=== PATIENT | female | born 1945 | race Caucasian/White ===

== ENCOUNTER → 2017-12-11 14:21 | Outpatient (POV) | payer MEDICARE, SELFPAY | PROVIDERS: Visit Provider Dermatology | DX: Z00.00 Encounter for general adult medical examination without abnormal findings (principal) ==

== ENCOUNTER → 2018-07-14 07:34 | Outpatient (CLI) | payer MEDICARE, SELFPAY ==
--- NOTE | 2018-07-14 08:00 | NM_ITS ---
History and Indications: Chest pain, shortness of breath, family history. Procedure: Patient exercised on Willard protocol 9 minutes, resting heart rate was 52 bpm resting blood pressure 165/87, with exercise maximum heart rate achieved was 1 44 bpm which is greater than 85% of the maximum predicted heart rate and a blood pressure was 176/80. Test was started due to shortness of breath patient denied any complained of chest pain. Patient has good exercise capacity achieved 10.1mets of workload on treadmill, the blood pressure response to exercise was abnormal. Electrocardiogram: Resting electrocardiogram showed sinus bradycardia, with exercise there is less than 1.[address] segment depression noted from the baseline EKG. The EKG portion of the exercise Myoview is negative for ischemia. Cardiac stress and resting SPECT images: Cardiac stress and resting SPECT images were obtained using technetium 99 Myoview 32.1 mCi stress and 10.1 mCi at rest. Gated SPECT further analysis of segmental wall motion and calculation of the ejection fraction also done. Cardiac stress and resting SPECT images show uniform myocardial activity without segmental perfusion abnormality, computer derived ejection fraction is over 65% with no regional wall motion abnormality, right ventricle is normal size and contractility. Conclusion: 1. The EKG portion of the exercise Myoview is negative for ischemia, patient has good exercise capacity achieved 10.1mets of workload on treadmill, the blood pressure response to exercise was abnormal, there was no exercise-induced chest discomfort. 2. No scintigraphic evidence of reversible ischemia seen at this level of exercise, computer derived ejection fraction is over 65% with no regional wall motion abnormality, right ventricle is normal size and contractility.
--- NOTE | 2018-07-14 08:56 | HMH.ITSHM ---
Current Home Medications as stated by this patient Katy De Los Santos or telephone services sales representative. []SYNTHROID
--- NOTE | 2018-07-14 10:30 | XR_ITS ---
XR DEXA axial skeleton HISTORY: ITS.REASON: OSTEOPENIA ORDERING PHYSICIAN: Jay Bailey MD PATIENT AGE: 72 years COMPARISON: 04/15/2016 FINDINGS: The BMD measured at the Left femoral neck is 0.670 g/cm squared with a T score of -2.6. This is considered Osteoporotic according to the World Health Organization criteria. Fracture risk is High. Treatment is advised. L1-L4 density has a T score of -2.1 and has decreased by 1.8%. The hip density has decreased by 0.8% IMPRESSION: Osteoporosis with high fracture risk. Treatment is advised. Suggest follow-up exam July 2019
== END ==
PROVIDERS: PCP Family Medicine; Visit Provider Family Medicine
DX: R07.89 Other chest pain (principal); M81.0 Age-related osteoporosis without current pathological fracture
CPT/HCPCS: 77080; 78451; 93017; A9502

== ENCOUNTER → 2020-01-25 08:05 | Outpatient (POV) | payer MEDICARE, SELFPAY | PROVIDERS: Visit Provider Dermatology | DX: Z00.00 Encounter for general adult medical examination without abnormal findings (principal) ==

== ENCOUNTER → 2020-08-21 09:01 | Outpatient (CLI) | payer MEDICARE, SELFPAY ==
--- NOTE | 2020-08-21 09:05 | XR_ITS ---
PROCEDURE: XR DEXA AXIAL SKELETON CLINICAL HISTORY: OSTEOPOROSIS COMPARISON: CR DEXAAX XR DEXA axial skeleton from 07/14/2018 FINDINGS: The right hip BMD is 0.590 with a T-score of -2.3. The left hip BMD is 0.568 with a T-score of -2.5. The lumbar spine BMD is 0.785 with a T-score of -2.4. Previously the lowest density was in the left femoral neck with a T-score -2.6 IMPRESSION: This patient is considered osteoporotic according to the World Health Organization criteria. Fracture risk is high. Treatment is advised. Based on these results a follow-up exam is recommended in 1 year. Dictated by: José Miguel Mcginnis MD 08/22/2020 08:56 José Miguel Mcginnis MD in [place] 08/22/2020 08:56
== END ==
PROVIDERS: PCP Nurse Practitioner; Visit Provider Nurse Practitioner
DX: M81.0 Age-related osteoporosis without current pathological fracture (principal)
CPT/HCPCS: 77080; 93225; 93226

== ENCOUNTER → 2021-07-10 12:40 | Outpatient (CLI) | payer MEDICARE, SELFPAY ==
--- NOTE | 2021-07-10 12:45 | CA_ITS ---
FINAL REPORT TECHNIQUE: Color Doppler, duplex Doppler and compression sonography of the left lower extremity deep venous systems was performed. CLINICAL HISTORY: .see tech sheet FINDINGS: There is no evidence of deep venous thrombosis from the level of the groin to the calf. The veins are patent and compressible. IMPRESSION: No evidence of deep venous thrombosis left lower extremity. Reviewed, Interpreted and Dictated by Eddie Sam III, MD Transcribed by Kisha Burns Authenticated by Eddie Sam III, MD on 07/10/2021 02:32:21 PM [facility]
== END ==
PROVIDERS: PCP Family Medicine; Visit Provider Nurse Practitioner
DX: M79.662 Pain in left lower leg (principal); R60.0 Localized edema
CPT/HCPCS: 93971

== ENCOUNTER → 2022-04-18 13:48 | Outpatient (CLI) | payer MEDICARE, SELFPAY ==
[2022-04-18 18:37] LABS: Basophils # 0.1 K/mm3 (0-0.2); Basophils % 1.1 % (0.1-2.0); Eosinophils # 0.2 K/mm3 (0.0-0.4); Eosinophils % 3.4 % (0.1-12.0); Hematocrit 42.2 % (37.0-47.0); Hemoglobin 13.7 g/dL (12.2-16.2); Lymphocytes # 1.2 K/mm3 (0.7-4.5); Mean Corpuscular HGB Conc 32.5 g/dL (31.8-35.4); Mean Corpuscular Hemoglobin 31.2 pg (27.0-31.2); Mean Corpuscular Volume 96.2 fl (81-99); Mean Platelet Volume 7.6 fl (7.4-10.4); Monocytes # 0.4 K/mm3 (0.1-1.0); Neutrophils % 69.5 % (37.0-80.0); Platelet Count 333 K/mm3 (142-424); Red Blood Count 4.38 M/mm3 (4.20-5.40); Red Cell Distribution Width 12.4 % (11.5-17.5); White Blood Count 5.8 K/mm3 (4.8-10.8)
[2022-04-18 19:21] LABS: Thyroid Stimulating Hormone 0.19 uIU/mL (0.465-4.68)
== END ==
PROVIDERS: PCP Nurse Practitioner; Visit Provider Nurse Practitioner
DX: R63.4 Abnormal weight loss (principal)
CPT/HCPCS: 84439; 84443; 85025

== ENCOUNTER → 2022-06-27 12:22 | Outpatient (CLI) | payer MEDICARE, SELFPAY ==
[2022-06-27 18:42] LABS: Basophils % 0.9 % (0.1-2.0); Eosinophils # 0.2 K/mm3 (0.0-0.4); Eosinophils % 4.2 % (0.1-12.0); Hematocrit 39.8 % (37.0-47.0); Hemoglobin 13.4 g/dL (12.2-16.2); Lymphocytes # 1.2 K/mm3 (0.7-4.5); Lymphocytes % 26.7 % (10-50); Mean Corpuscular HGB Conc 33.7 g/dL (31.8-35.4); Mean Corpuscular Hemoglobin 31.8 pg (27.0-31.2); Mean Corpuscular Volume 94.2 fl (81-99); Mean Platelet Volume 8.4 fl (7.4-10.4); Monocytes # 0.4 K/mm3 (0.1-1.0); Monocytes % 9.1 % (1.7-9.3); Neutrophils # 2.7 K/mm3 (1.8-7.8); Neutrophils % 59.1 % (37.0-80.0); Platelet Count 343 K/mm3 (142-424); Red Blood Count 4.23 M/mm3 (4.20-5.40); Red Cell Distribution Width 12.2 % (11.5-17.5); White Blood Count 4.5 K/mm3 (4.8-10.8)
[2022-06-27 18:50] LABS: Alanine Aminotransferase 17 U/L (12-78); Albumin Level 4.2 g/dl (3.5-5.0); Albumin/Globulin Ratio 1.6 (1.1-1.8); Alkaline Phosphatase 77 U/L (38-126); Aspartate Amino Transferase 30 U/L (14-36); Bilirubin,Total 0.4 mg/dl (0.2-1.3); Blood Urea Nitrogen 12 mg/dl (7-17); Carbon Dioxide 28 mmol/L (22.0-30.0); Chloride 99 mmol/L (98-107); Chol/HDL Ratio 2.5 (1-3.5); Cholesterol 216 mg/dl (140-200); Estimated Glomerular Filt Rate 98 ml/min (>60); GFR (African American) 118 ML/MIN (>60); Globulin 2.7 g/dL (1.3-3.2); Glucose 86 mg/dl (74-100); HDL Cholesterol 88 mg/dl (40-60); Sodium 135 mmol/L (136-145); Total Protein,Serum 6.9 g/dl (6.3-8.2); Triglycerides 77 mg/dl (30-150); VLDL Cholesterol 15 mg/dL (0-40)
[2022-06-27 19:01] LABS: Direct LDL Cholesterol 99.87 mg/dL (100-129)
[2022-06-27 19:20] LABS: Thyroid Stimulating Hormone 4.09 uIU/mL (0.465-4.68)
== END ==
PROVIDERS: PCP Nurse Practitioner; Visit Provider Nurse Practitioner
DX: E03.9 Hypothyroidism, unspecified (principal); E78.5 Hyperlipidemia, unspecified; K62.89 Other specified diseases of anus and rectum
CPT/HCPCS: 80053; 80061; 84439; 84443; 85025

== ENCOUNTER 2022-08-20 09:48 | Observation (INO) | payer MEDICARE, SELFPAY ==
[2022-08-20] VITALS (28 sets, daily range): BP systolic 103–152; BP diastolic 54–90; PULSE 65–100; RESP 15–18; TEMP 36.3–37.3; O2SAT 92–99; BMI 19.9; BMI 20.2
--- NOTE | 2022-08-20 09:53 | PC.NURSE ---
Friend at BS
--- NOTE | 2022-08-20 09:54 | PC.NURSE ---
pt ambulatory to ED room 7 from restroom without complication
--- NOTE | 2022-08-20 09:58 | PC.NURSE ---
MARK EMERSON at for patient eval
--- NOTE | 2022-08-20 10:11 | CT_ITS ---
FINAL REPORT CLINICAL HISTORY: RLQ abd pain and history of hernia. Guarding FINDINGS: CT OF THE ABDOMEN AND PELVIS WITH CONTRAST Axial CT images of the abdomen and pelvis were obtained after the administration of IV contrast. Coronal reformatted images were also obtained and reviewed.This study was performed with techniques to keep radiation doses as low as reasonably achievable (ALARA). Individualized dose reduction techniques using automated exposure control or adjustment of mA and/or kV according to the patient's size were employed. Abdomen: There is mild bibasilar atelectasis. The heart is normal in size. There are several hepatic cysts. The spleen is unremarkable. No adrenal mass is present. The pancreas has an unremarkable appearance. There is a left renal cyst measuring 5.5 cm. There is diffuse gastric wall thickening which is nonspecific and may be inflammatory. The aorta is normal in caliber. There is no free fluid or adenopathy. Pelvis: The appendix is enlarged measuring 12 mm in diameter and fluid-filled with surrounding inflammatory changes consistent with acute appendicitis. There is no evidence of bowel obstruction. There are scattered sigmoid diverticula. There are postoperative changes from hysterectomy. There is a probable small cyst measuring 13 mm in the right adnexa. The urinary bladder is unremarkable. No inflammatory process is seen. There is no evidence of mass or adenopathy. There is no evidence of bowel obstruction. IMPRESSION: Enlarged, fluid-filled appendix with surrounding inflammatory changes consistent with acute appendicitis. Diffuse gastric wall thickening which is nonspecific and may be inflammatory. Several hepatic cysts. Left renal cyst, 5.5 cm. Reviewed, Interpreted and Dictated by Eddie Sam III, MD Transcribed by Jessica Duron Authenticated and [facility]
--- NOTE | 2022-08-20 10:11 | HMH.EDGENADL ---
Discharge Plan Disposition Patient Disposition: Admitted As Inpatient Condition: Fair Chief Complaint: Abdominal Pain Clinical Impressions Clinical Impression: Acute appendicitis with localized peritonitis Discharge ED Provider: Bhupendra Lieberman General Adult HPI General Chief complaint: Abdominal Pain Stated complaint: RT abd pain, nausea Time Seen by Provider: 08/20/22 09:52 Mode of Arrival: Ambulatory Source of Information: Patient Limitations: No Limitations History of Present Illness HPI narrative: This is a 76-year-old female with history of hypothyroidism on Synthroid, bilateral inguinal hernias (status postrepair in the 90s) presenting with right lower quadrant abdominal pain. Patient states that abdominal pain started 2 nights prior to arrival, it started while she was bringing her knees to her chest while she was exercising. Since that time, it has waxed and waned, but is constant. At its worst, 8 out of 10 in intensity and does not radiate, it is sharp. Currently, it is 2 out of 10 and mild/dull. She states things that make it worse include changes in position, particularly standing up from lying down in bed. Denies nausea, vomiting, fevers, chills, dysuria, hematuria, swelling in her groin, abnormal vaginal discharge or bleeding, flank pain, or any other concerns. Last bowel movement was today and was normal for her, patient is still passing flatus. Related Data Home Medications Medication Instructions Recorded Confirmed calcium carbonate 250 mg-vitamin 1 tab PO BID Supplement 03/28/22 08/20/22 D3 3.125 mcg (125 unit) tablet magnesium oxide 500 mg tablet 500 mg PO DAILY Supplement 03/28/22 08/20/22 (Vaughn) multivit with min-folic 1 tab PO DAILY Supplement 03/28/22 08/20/22 acid-lutein 400 mcg-250 mcg chewable tablet (Centrum Silver) omega 5-tig-abf-fish oil 1,000 mg 1 cap PO DAILY Supplement 03/28/22 08/20/22 (120 mg-180 mg) capsule (Fish Oil) levothyroxine 75 mcg tablet 75 mcg PO .COMPLEX thyroid 06/27/22 08/20/22 (Synthroid) Previous Rx's Medication Instructions Recorded hydroxyzine pamoate 25 mg capsule 25 - 50 mg PO QID PRN anxiety #60 08/05/22 caps Allergies Allergy/AdvReac Type Severity Reaction Status Date / Time ciprofloxacin Allergy Verified 08/12/22 14:23 metronidazole Allergy Verified 08/12/22 14:23 Sulfa (Sulfonamide Allergy Verified 08/12/22 14:23 Antibiotics) [facility] Disclaimer: The information contained in this section may have been updated after the patient was seen, as this information can be updated by other users. Medical History Acquired hypothyroidism Advance directive on file Cataracts, bilateral Colon polyp Diverticulosis Fibrocystic breast disease Hyperlipidemia Hypothyroid Osteoporosis Postmenopausal Vitamin D deficiency Surgical History History of colonoscopy (~2017) History of hernia surgery History of tonsillectomy History of vaginal hysterectomy (~2008) Family History Other Cancer Hypertension Social History Smoking Status: Never smoker alcohol intake: never substance use type: denies use current occupational status: retired Travel in the last 8 weeks: None caffeine: Yes ROS Obtained: Yes All systems reviewed & no additional complaints except as documented Physical Exam General General appearance: alert and in no apparent distress Head Head exam: atraumatic, normocephalic and normal inspection Eye Eye exam: Present normal appearance, PERRL and EOMI ENT ENT exam: Present normal exam, normal oropharynx, mucous membranes moist, TM's normal bilaterally and normal external ear exam Neck Neck exam: Present normal inspection, full ROM and trachea midline; Absent
[2022-08-20 10:17] LABS: Microscopic, Urine URINE MICROSCOPIC (MICROSCOPIC)
[2022-08-20 10:19] LABS: Appearance,Urine CLEAR (Clear); Bilirubin,Urine Negative (Negative); Blood, Urine 2+ (Negative); Color,Urine YELLOW (Yellow); Glucose,Urine (UA) Negative (Negative); Ketones,Urine TRACE (Negative); Leukocyte Esterase,Urine Negative (Negative); Nitrate,Urine Negative (Negative); Protein,Urine Negative (Negative); Specific Gravity, Urine <= 1.005 (1.005-1.030); Urobilinogen,Urine 0.2 EU/dl (0.2)
[2022-08-20 10:25] LABS: Basophils % 0.3 % (0.1-2.0); Eosinophils # 0.1 K/mm3 (0.0-0.4); Eosinophils % 1.1 % (0.1-12.0); Hematocrit 39.4 % (37.0-47.0); Hemoglobin 13.2 g/dL (12.2-16.2); Lymphocytes # 0.7 K/mm3 (0.7-4.5); Lymphocytes % 5.4 % (10-50); Mean Corpuscular HGB Conc 33.5 g/dL (31.8-35.4); Mean Corpuscular Hemoglobin 31.1 pg (27.0-31.2); Mean Corpuscular Volume 92.7 fl (81-99); Mean Platelet Volume 7.3 fl (7.4-10.4); Monocytes # 0.9 K/mm3 (0.1-1.0); Monocytes % 6.6 % (1.7-9.3); Neutrophils # 11.5 K/mm3 (1.8-7.8); Neutrophils % 86.8 % (37.0-80.0); Platelet Count 329 K/mm3 (142-424); Red Blood Count 4.25 M/mm3 (4.20-5.40); Red Cell Distribution Width 12.3 % (11.5-17.5); White Blood Count 13.3 K/mm3 (4.8-10.8)
[2022-08-20 10:27] LABS: Chloride 93 mmol/L (98-107); Sodium 124 mmol/L (136-145)
[2022-08-20 10:28] LABS: Potassium 3.2 mmoL/L (3.5-5.1)
[2022-08-20 10:30] LABS: Alanine Aminotransferase 19 U/L (12-78); Alkaline Phosphatase 82 U/L (38-126); Anion Gap 8.2 mEq/L (5-15); Aspartate Amino Transferase 27 U/L (14-36); Bilirubin,Total 0.8 mg/dl (0.2-1.3); Blood Urea Nitrogen 8 mg/dl (7-17); Calcium 8.2 mg/dl (8.4-10.2); Carbon Dioxide 26 mmol/L (22.0-30.0); Creatinine Clearance Estimated 39 mL/min (50-200); Estimated Glomerular Filt Rate 121 ml/min (>60); GFR (African American) 146 ML/MIN (>60); Glucose 116 mg/dl (74-100); Lactic Acid 0.6 mmol/L (0.7-2.1); Lipase 52 U/L (23-300); MANUAL DIFFERENTIAL MANUAL DIFFERENTIAL (MANUAL DIFF)
[2022-08-20 10:31] LABS: Albumin Level 3.9 g/dl (3.5-5.0); Albumin/Globulin Ratio 1.5 (1.1-1.8); Globulin 2.6 g/dL (1.3-3.2); Total Protein,Serum 6.5 g/dl (6.3-8.2)
--- NOTE | 2022-08-20 10:32 | ECG_ITS ---
APPROVED REPORT Exam: Resting ECG HR:67 bpm ECG Measurements Heart Rate 67 AXES [place] 169 P 55 QRSd 77 QRS 66 QT 415 T 82 QTc 431 Conclusion SINUS RHYTHM NORMAL ECG UNCONFIRMED REPORT Electronically signed by : Samson Bell MD 08/20/2022 20:29:04
[2022-08-20 10:34] LABS: Bacteria,Urine Trace /lpf; Squamous Epithelial Cell,Urine Occasional #/hpf (0-5); WBC,Urine Occasional #/hpf (0-3)
--- NOTE | 2022-08-20 10:42 | PC.NURSE ---
pt to CT
[2022-08-20 10:43] LABS: Troponin I < 0.01 ng/ml (0.00-0.034)
[2022-08-20 10:48] LABS: Coronavirus 19, PCR Not Detected (NotDetected); Influenza A, PCR Not Detected (NotDetected); Influenza B, PCR Not Detected (NotDetected)
[2022-08-20 10:56] LABS: Lymphocytes % 8 % (10-50); Monocytes % 5 % (2-9); Neutrophils % 87 % (42-76); Platelet Estimate Normal; RBC Morphology Normal; Total Cells Counted 100
--- NOTE | 2022-08-20 11:27 | PC.NURSE ---
patient assisted to bathroom and back to bed. no other needs at this time
--- NOTE | 2022-08-20 11:36 | PC.NURSE ---
Family member came out stating iv sight hAD A KNOT, ASSESSED AND IT HAD AHUGE HEMATOMA. IV D/C.
--- NOTE | 2022-08-20 11:56 | PC.NURSE ---
Paged Dr. Polanco
--- NOTE | 2022-08-20 12:07 | PC.NURSE ---
patient assisted to bathroom, given warm blanket. Patient informed no more drinking until the came to speak to her
--- NOTE | 2022-08-20 12:08 | PC.NURSE ---
MARK EMERSON spoke wtih dr. burden, states to admit pt will take pt to surgery this afternoon, stated to contact pt pcp for admission
--- NOTE | 2022-08-20 12:11 | PC.NURSE ---
MARK EMERSON speaking with dr. webb
--- NOTE | 2022-08-20 12:13 | PC.NURSE ---
per dr. webb to ER MD pt has not been being seen at their office. ER MD contacted hospitalist-waiting mobile application engineer back
--- NOTE | 2022-08-20 12:19 | PC.NURSE ---
MARK EMERSON speaking with dr. lambert
--- NOTE | 2022-08-20 12:22 | PC.NURSE ---
notified care management of admission
--- NOTE | 2022-08-20 12:26 | PC.NURSE ---
MARK EMERSON at BS for update on POC; friend at BS
--- NOTE | 2022-08-20 12:26 | PC.NURSE ---
MARK EMERSON at discussing POC
--- NOTE | 2022-08-20 12:36 | PC.NURSE ---
New IV line placed right forearm 18 ga, IVF connected and infusion, site WDL
--- NOTE | 2022-08-20 12:39 | PC.NURSE ---
surgery team called advising they were coming to get pt in 20-30 min
--- NOTE | 2022-08-20 12:43 | PC.NURSE ---
Dr. Polanco at BS
--- NOTE | 2022-08-20 12:56 | EXP.HP ---
History of Present Illness *Admission Date: 08/20/22 *Reason for visit:: Abdominal pain *History of present illness: Ms. De Los Santos is a pleasant 76-year-old female who presented to the ER today with 2 to 3 days of worsening abdominal pain. States pain began over the weekend, responded to ibuprofen with resolution of pain. Until this morning when she woke up that she have acute onset of sharp right lower abdominal pain. Denies any nausea or vomiting. No diarrhea. No fever. She was concerned for appendicitis or rupture of her previous hernia repair. History of's, diverticula cyst, hypothyroidism. Otherwise in generally good health for her age. No other acute complaints today. On presentation to the ER, CT obtained showing appendicitis. Surgery consulted, patient taken to the OR for surgery. Started on empiric antibiotics with Invanz. Medicine consulted for admission. After arriving to the floor, patient is postop. Having some abdominal tenderness from incisions. Denies any nausea. Tolerating clear liquids. Afebrile and hemodynamically stable. On room air. [facility] Disclaimer: The information contained in this section may have been updated after the patient was seen, as this information can be updated by other users. Medical History Acquired hypothyroidism Advance directive on file Cataracts, bilateral Colon polyp Diverticulosis Fibrocystic breast disease Hyperlipidemia Hypothyroid Osteoporosis Postmenopausal Vitamin D deficiency Surgical History History of hernia surgery History of tonsillectomy History of vaginal hysterectomy (~2008) S/P laparoscopic appendectomy Family History Cancer Hypertension Social History Smoking Status: Never smoker alcohol intake: never substance use type: denies use current occupational status: retired Travel in the last 8 weeks: None caffeine: Yes Review of Systems Review of Systems Review of systems (narrative): 14 point review of systems performed, pertinent positives and negatives as per HPI Meds Home Medications and Allergies Home Medications Medication Instructions Recorded Confirmed Type calcium carbonate 250 mg-vitamin 1 tab PO BID Supplement 03/28/22 08/20/22 History D3 3.125 mcg (125 unit) tablet magnesium oxide 500 mg tablet 500 mg PO DAILY Supplement 03/28/22 08/20/22 History (Vaughn) multivit with min-folic 1 tab PO DAILY Supplement 03/28/22 08/20/22 History acid-lutein 400 mcg-250 mcg chewable tablet (Centrum Silver) omega 7-sjs-byv-fish oil 1,000 mg 1 cap PO DAILY Supplement 03/28/22 08/20/22 History (120 mg-180 mg) capsule (Fish Oil) levothyroxine 75 mcg tablet 75 mcg PO MOTUWETHFR hypothyroidism 06/27/22 08/20/22 History (Synthroid) hydroxyzine pamoate 25 mg capsule 25 - 50 mg PO QIDP PRN anxiety 08/20/22 08/20/22 History New Prescriptions to Start Prescriptions: Allergies Allergy/AdvReac Type Severity Reaction Status Date / Time ciprofloxacin Allergy Verified 08/20/22 12:41 metronidazole Allergy Verified 08/20/22 12:41 Sulfa (Sulfonamide Allergy Verified 08/20/22 12:41 Antibiotics) Exam Data for Last 24 hours Vital signs and Labs for Last 24 Hours: Temp Pulse Resp BP Pulse Ox 99.1 F 73 16 126/69 99 08/20/22 10:08/20/22 12:00 08/20/22 10:08/20/22 12:00 08/20/22 12:00 Laboratory Results - last 24 hr 08/20/22 09:54: Urine Color Yellow, Urine Appearance Clear, Urine pH 6.0, Ur Specific [place] <= 1.005, Urine Protein Negative, Urine Glucose (UA) Negative, Urine Ketones Trace, Urine Blood 2+, Urine Nitrate Negative, Urine Bilirubin Negative, Urine Urobilinogen 0.2, Ur Leukocyte Esterase Negative, Urine RBC 10-20, Urine WBC Occasional, Ur Squamous Epith Cells Occasional, U
--- NOTE | 2022-08-20 13:01 | PC.NURSE ---
surgery staff at
--- NOTE | 2022-08-20 13:04 | PC.NURSE ---
pt to preop via wheelchair per jf wilks at this time
--- NOTE | 2022-08-20 13:18 | EXP.ANES.CKL ---
[facility] Disclaimer: The information contained in this section may have been updated after the patient was seen, as this information can be updated by other users. Medical History Acquired hypothyroidism Advance directive on file Cataracts, bilateral Colon polyp Diverticulosis Fibrocystic breast disease Hyperlipidemia Hypothyroid Osteoporosis Postmenopausal Vitamin D deficiency Surgical History History of colonoscopy (~2017) History of hernia surgery History of tonsillectomy History of vaginal hysterectomy (~2008) Family History Other Cancer Hypertension Social History Smoking Status: Never smoker alcohol intake: never substance use type: denies use current occupational status: retired Travel in the last 8 weeks: None caffeine: Yes [facility] Anesthesia Checklist Patient Identification Patient Identification: Arm Band Structural Data Admitted From: Emergency Dept Planned Operative Procedure/s: Laparoscopic Appendectomy Consent for Planned Operative Procedure(s) Verified: Yes Verified Documents: Surgical Consent and History and Physical NPO Status Verified Time NPO: 06:30 (Light breakfast- toast, crackers and tea) Additional verifications Anesthesia Reactions: No Airway Assessment C-Spine Mobility Assessed: Yes TMJ Mobility Assessed: Yes Dentition: Good Dentition Neurological Assessment Level of Consciousness: Awake and Alert Anesthesia Plan Anesthesia Risk discussed: Yes Anesthesia Plan: Verified ASA Class: II Anesthesia Type: General
--- NOTE | 2022-08-20 13:52 | EXP.SURG.CON ---
History of Present Illness *Admission Date: 08/20/22 *Reason for visit:: Appendicitis; hyponatremia *History of present illness: This is a 76-year-old female seen in consultation after presenting to the emergency department with increasing right lower quadrant abdominal pain. Radiographic evidence confirming appendicitis was noted. Mild leukocytosis with left shift also noted. In addition, laboratory evaluation revealed fairly significant hyponatremia and the decision was made to admit to the hospital service with surgical consultation. [facility] Disclaimer: The information contained in this section may have been updated after the patient was seen, as this information can be updated by other users. Medical History (Updated 08/20/22 @ 13:56 by Jose Polanco MD) Acquired hypothyroidism Advance directive on file Cataracts, bilateral Colon polyp Diverticulosis Fibrocystic breast disease Hyperlipidemia Hypothyroid Osteoporosis Postmenopausal Vitamin D deficiency Surgical History (Updated 08/20/22 @ 13:56 by Jose Polanco MD) History of hernia surgery History of tonsillectomy History of vaginal hysterectomy (~2008) Family History Other Cancer Hypertension Social History Smoking Status: Never smoker alcohol intake: never substance use type: denies use current occupational status: retired Travel in the last 8 weeks: None caffeine: Yes Meds Home Medications and Allergies Home Medications Medication Instructions Recorded Confirmed Type calcium carbonate 250 mg-vitamin 1 tab PO BID Supplement 03/28/22 08/20/22 History D3 3.125 mcg (125 unit) tablet magnesium oxide 500 mg tablet 500 mg PO DAILY Supplement 03/28/22 08/20/22 History (Vaughn) multivit with min-folic 1 tab PO DAILY Supplement 03/28/22 08/20/22 History acid-lutein 400 mcg-250 mcg chewable tablet (Centrum Silver) omega 3-uuz-eno-fish oil 1,000 mg 1 cap PO DAILY Supplement 03/28/22 08/20/22 History (120 mg-180 mg) capsule (Fish Oil) levothyroxine 75 mcg tablet 75 mcg PO MOTUWETHFR hypothyroidism 06/27/22 08/20/22 History (Synthroid) hydroxyzine pamoate 25 mg capsule 25 - 50 mg PO QIDP PRN anxiety 08/20/22 08/20/22 History New Prescriptions to Start Prescriptions: Allergies Allergy/AdvReac Type Severity Reaction Status Date / Time ciprofloxacin Allergy Verified 08/20/22 12:41 metronidazole Allergy Verified 08/20/22 12:41 Sulfa (Sulfonamide Allergy Verified 08/20/22 12:41 Antibiotics) Exam (Inpt) Vital signs and Labs for Last 24 Hours: Temp Pulse Resp BP Pulse Ox 99.1 F 71 16 143/90 H 98 08/20/22 13:04 08/20/22 13:04 08/20/22 13:04 08/20/22 13:04 08/20/22 12:30 Laboratory Results - last 24 hr 08/20/22 09:54: Urine Color Yellow, Urine Appearance Clear, Urine pH 6.0, Ur Specific [place] <= 1.005, Urine Protein Negative, Urine Glucose (UA) Negative, Urine Ketones Trace, Urine Blood 2+, Urine Nitrate Negative, Urine Bilirubin Negative, Urine Urobilinogen 0.2, Ur Leukocyte Esterase Negative, Urine RBC 10-20, Urine WBC Occasional, Ur Squamous Epith Cells Occasional, Urine Bacteria Trace 08/20/22 10:15: WBC 13.3 H, RBC 4.25, Hgb 13.2, Hct 39.4, MCV 92.7, MCH 31.1, MCHC 33.5, RDW 12.3, Plt Count 329, MPV 7.3 L, Neut % (Auto) 86.8 H, Lymph % (Auto) 5.4 L, [place] % (Auto) 6.6, Eos % (Auto) 1.1, Baso % (Auto) 0.3, Neut # (Auto) 11.5 H, Lymph # (Auto) 0.7, [place] # (Auto) 0.9, Eos # (Auto) 0.1, Baso # (Auto) 0.0, Total Counted 100, Neutrophils % (Manual) 87 H, Lymphocytes % (Manual) 8 L, Monocytes % (Manual) 5, Platelet Estimate Normal, RBC Morphology Normal 08/20/22 10:15: Sodium 124 L, Potassium 3.2 L, Chloride 93 L, Carbon Dioxide 26, Anion Gap 8.2, BUN 8, Creatinine 0.50 L, Estimated Creat Clear 39, Estimated GFR 121, Est GFR ( Amer) 146, Glucose 116 H, Calcium 8.2 L,
--- NOTE | 2022-08-20 15:25 | EXP.OP.NOTE ---
Date of procedure: 08/20/22 Pre-op Diagnosis:: Appendicitis Post-op Diagnosis:: Necrotizing appendicitis with focal perforation Procedure performed:: Laparoscopic appendectomy Surgeon:: Jose Polanco MD PENS AND PENCILS REPAIRER:: Cricket Weller Anesthesia: VINCENT Estimated blood loss (mL): 15 Operative findings:: Necrotic appendix with severe periappendiceal inflammatory changes Small bowel, colon, and omentum densely adhesed to necrotic appendix Focal perforation centrally No obvious abscess or fluid collections Appendiceal base appeared viable Operative note:: After informed consent was obtained the patient was taken to the operating room and placed in the supine position. General anesthesia was induced and her abdomen was prepped and draped in a sterile fashion. After infiltration local anesthetic a supraumbilical incision was made. A Veress needle was placed in position. The abdomen was insufflated. A 12 mm optical trocar was placed in position. Under direct visualization an additional 5 mm trocar was placed in the suprapubic position and an additional 5 mm trocar was placed in the left lower quadrant. Dense adhesions noted throughout the right lower quadrant with significant increased inflammatory changes and adhesions within the distal ileum, cecum, and surrounding omentum. The appendix was located along the retrocecal/right lateral margin. The appendix was necrotic and a small area of focal perforation along the mid appendix was seen. No sign of surrounding abscess cavity or fluid collection. Secondary to dense adhesions to the small bowel and colonic wall elevation and dissection was very difficult. The mesoappendix was taken at the appendiceal margin with harmonic dusty. No obvious injury to small bowel or colon was noted. The base of the appendix appeared viable and was controlled with an Endopath 45 stapling device. The appendix which was now freed from surrounding tissue was placed in a retrieval bag and removed through the supraumbilical trocar site. The right lower quadrant was thoroughly irrigated. No active bleeding or sign of injury was noted. Fascia at the supraumbilical trocar site was reapproximated utilizing the needle close device. Skin was closed with 4-0 Monocryl in a mattress fashion to facilitate hemostasis. Condition: stable Disposition: PACU Specimens:: Appendix Complications:: No immediate. Note: The patient did have moderate elevation of CO2 noted during the terminal portion of the case. This coincided temporally with the release of pneumoperitoneum (afterwards which CO2 levels improved).
--- NOTE | 2022-08-20 15:37 | EXP.ANES.I ---
[facility] Anesthesia Record Part I Anesthesia Record I Intake, IV Amount: 1,200 Estimated blood loss (mL): 10 Urine output (mL): 75 Blood Products used (#): none Blood Pressure: 131/73 SaO2: 96 Pulse Rate: 100 Respiratory Rate: 16 Temperature: 97.4 F Patient is:: Drowsy and Stable
[2022-08-20 15:49] LABS: Microscopic,Cath URINE MICROSCOPIC (MICROSCOPIC)
[2022-08-20 15:54] LABS: Appearance,Urine/Cath CLEAR (Clear); Bilirubin,Cath Negative (Negative); Blood, Urine/Cath 2+ (Negative); Color,Urine/Cath YELLOW (Yellow); Glucose,Urine/Cath (UA) Negative (Negative); Ketones,Urine/Cath 1+ (Negative); Leukocyte Esterase,Cath Negative (Negative); Nitrate,Cath Negative (Negative); PH,Urine/Cath 6.5 (5.0-8.5); Protein,Urine/Cath Negative (Negative); Specific Gravity, Urine/Cath <= 1.005 (1.005-1.030); Urobilinogen,Cath 0.2 EU/dl (0.2)
--- NOTE | 2022-08-20 15:58 | PC.NURSE ---
Report from EMELI Hewitt. Patient arriving from PACU.
--- NOTE | 2022-08-20 16:00 | PC.NURSE ---
Pt arrived to the floor at this time
--- NOTE | 2022-08-20 16:00 | SUR.PHASEI ---
Report called to EMELI Marquez @ [phone]. [phone] -Pt transported to floor via stretcher by Elisa Black RN and Janae Davis RN.
[2022-08-20 16:02] LABS: RBC,Urine/Cath Occasional # /hpf (0-3)
--- NOTE | 2022-08-20 16:13 | HMH.PHAINT1 ---
Pharmacy Intervention Comments: Medication reconciliation completed using external fill history and patient interview. During patient interview, patient expressed she does not take her prescribed zoloft due to side effects . When asked about specific side effects, patient just stated I don't like medicine
--- NOTE | 2022-08-20 19:01 | PC.NURSE ---
patient rested well this afternoon since arriving to the floor. pain meds given, walked to the bathroom with minimal assistance.
[2022-08-21] VITALS (8 sets, daily range): BP systolic 92–132; BP diastolic 59–76; PULSE 66–90; RESP 16–18; TEMP 36.6–36.9; O2SAT 93–98; BMI 21.1
--- NOTE | 2022-08-21 05:18 | PC.NURSE ---
pt rested well through the night, pt states tenderness to incision sites but denies need for pain meds when asked, vss, pt is alert and oriented x4, no acute distress, no issues noted. abdominal incisions x3 with dressings intact with scant amt of drainage noted.
--- NOTE | 2022-08-21 06:04 | PC.NURSE ---
.075mcg of levothyroxine unavailable, verified with jessica with [facility] the ok to give 3 tablets of 0.025mcg to equal .075mcg repeated and verified, pt did not want pain med at this time when offered for complaints of tenderness and pain at incision sites.
[2022-08-21 06:20] LABS: Basophils % 0.2 % (0.1-2.0); Eosinophils % 0.1 % (0.1-12.0); Hematocrit 38.7 % (37.0-47.0); Hemoglobin 12.3 g/dL (12.2-16.2); Lymphocytes # 0.9 K/mm3 (0.7-4.5); Mean Corpuscular HGB Conc 31.7 g/dL (31.8-35.4); Mean Corpuscular Hemoglobin 30.5 pg (27.0-31.2); Mean Corpuscular Volume 96.1 fl (81-99); Mean Platelet Volume 7.2 fl (7.4-10.4); Monocytes # 0.6 K/mm3 (0.1-1.0); Monocytes % 6.5 % (1.7-9.3); Neutrophils # 7.6 K/mm3 (1.8-7.8); Neutrophils % 83.1 % (37.0-80.0); Platelet Count 296 K/mm3 (142-424); Red Blood Count 4.02 M/mm3 (4.20-5.40); Red Cell Distribution Width 12.4 % (11.5-17.5); White Blood Count 9.1 K/mm3 (4.8-10.8)
[2022-08-21 06:39] LABS: Anion Gap 5.1 mEq/L (5-15); Blood Urea Nitrogen 6 mg/dl (7-17); Calcium 8.1 mg/dl (8.4-10.2); Carbon Dioxide 30 mmol/L (22.0-30.0); Chloride 99 mmol/L (98-107); Creatinine Clearance Estimated 42 mL/min (50-200); Estimated Glomerular Filt Rate 121 ml/min (>60); GFR (African American) 146 ML/MIN (>60); Glucose 90 mg/dl (74-100); Magnesium 2.2 mg/dl (1.6-2.3); Potassium 4.1 mmoL/L (3.5-5.1); Sodium 130 mmol/L (136-145)
[2022-08-21 07:06] LABS: Thyroid Stimulating Hormone 5.31 uIU/mL (0.465-4.68)
--- NOTE | 2022-08-21 08:01 | DIET.NUTRFU ---
RD was notified of diet advancement to full liquids and patient was requesting a special milkshake she has been drinking at home. She lost her about 1 week ago and has lost 7#. She has been making homemade milk containing protein powder, peanutbutter and banana for extra calories and protein. Also provided her with handouts on increasing calorie intake, milkshake and custard recipes. Notified kitchen of lunch and milkshake requests
--- NOTE | 2022-08-21 08:18 | EXP.SURG.PN ---
Subjective Patient reports: no new complaints and feels better Exam Data for Last 24 hours Vital signs and Labs for Last 24 Hours: Temp Pulse Resp BP Pulse Ox 98.3 F 76 16 122/74 97 08/21/22 08:00 08/21/22 08:00 08/21/22 08:00 08/21/22 08:00 08/21/22 08:00 Laboratory Results - last 24 hr 08/20/22 09:54: Urine Color Yellow, Urine Appearance Clear, Urine pH 6.0, Ur Specific [place] <= 1.005, Urine Protein Negative, Urine Glucose (UA) Negative, Urine Ketones Trace, Urine Blood 2+, Urine Nitrate Negative, Urine Bilirubin Negative, Urine Urobilinogen 0.2, Ur Leukocyte Esterase Negative, Urine RBC 10-20, Urine WBC Occasional, Ur Squamous Epith Cells Occasional, Urine Bacteria Trace 08/20/22 10:15: WBC 13.3 H, RBC 4.25, Hgb 13.2, Hct 39.4, MCV 92.7, MCH 31.1, MCHC 33.5, RDW 12.3, Plt Count 329, MPV 7.3 L, Neut % (Auto) 86.8 H, Lymph % (Auto) 5.4 L, [place] % (Auto) 6.6, Eos % (Auto) 1.1, Baso % (Auto) 0.3, Neut # (Auto) 11.5 H, Lymph # (Auto) 0.7, [place] # (Auto) 0.9, Eos # (Auto) 0.1, Baso # (Auto) 0.0, Total Counted 100, Neutrophils % (Manual) 87 H, Lymphocytes % (Manual) 8 L, Monocytes % (Manual) 5, Platelet Estimate Normal, RBC Morphology Normal 08/20/22 10:15: Sodium 124 L, Potassium 3.2 L, Chloride 93 L, Carbon Dioxide 26, Anion Gap 8.2, BUN 8, Creatinine 0.50 L, Estimated Creat Clear 39, Estimated GFR 121, Est GFR ( Amer) 146, Glucose 116 H, Calcium 8.2 L, Total Bilirubin 0.8, AST 27, ALT 19, Alkaline Phosphatase 82, Troponin I < 0.01, Total Protein 6.5, Albumin 3.9, Globulin 2.6, Albumin/Globulin Ratio 1.5, Lipase 52 08/20/22 10:15: Lactate 0.6 L 08/20/22 10:37: SARS-CoV-2 (PCR) Not detected, Influenza A Untype (PCR) Not detected, Influenza Type B (PCR) Not detected 08/20/22 14:00: Urine Color Yellow, Urine Appearance Clear, Urine pH 6.5, Ur Specific [place] <= 1.005, Urine Protein Negative, Urine Glucose (UA) Negative, Urine Ketones 1+, Urine Blood 2+, Urine Nitrate Negative, Urine Bilirubin Negative, Urine Urobilinogen 0.2, Ur Leukocyte Esterase Negative, Urine RBC Occasional, Urine WBC None, Ur Squamous Epith Cells None, Urine Bacteria None 08/21/22 05:20: WBC 9.1 D, RBC 4.02 L, Hgb 12.3, Hct 38.7, MCV 96.1, MCH 30.5, MCHC 31.7 L, RDW 12.4, Plt Count 296, MPV 7.2 L, Neut % (Auto) 83.1 H, Lymph % (Auto) 10.0, [place] % (Auto) 6.5, Eos % (Auto) 0.1, Baso % (Auto) 0.2, Neut # (Auto) 7.6, Lymph # (Auto) 0.9, [place] # (Auto) 0.6, Eos # (Auto) 0.0, Baso # (Auto) 0.0 08/21/22 05:20: Sodium 130 L, Potassium 4.1 D, Chloride 99, Carbon Dioxide 30, Anion Gap 5.1, BUN 6 L, Creatinine 0.50 L, Estimated Creat Clear 42, Estimated GFR 121, Est GFR ( Amer) 146, Glucose 90 D, Calcium 8.1 L, Magnesium 2.2, TSH 5.31 H I & O for Last 24 hours: Intake & Output 08/18/22 08/19/22 08/20/22 08/21/22 11:59 11:59 11:59 11:59 Intake Total 2680 / 2680 Output Total 275 / 275 Balance 2405 / 2405 Weight 109 lb 119 lb 3.2 oz Constitutional Constitutional: no acute distress *Routine Respiratory Exam Respiratory: Absent respiratory distress *Routine Cardiovascular Exam Cardiovascular: Absent tachycardia *Routine Abdominal Exam Abdominal: Present soft Comments: Dressings intact. No cellulitis. Appropriate postoperative tenderness. Progress Note: A&P Assessment and plan (1) Acute perforated appendicitis: Problem details: Appendiceal necrosis with focal perforation Status: Acute Assessment and plan: Continue IV antibiotics for now Full liquid diet Increase ambulation Repeat CBC in AM Possible discharge home tomorrow with close outpatient follow-up (2) Hyponatremia: Status: Acute
--- NOTE | 2022-08-21 08:40 | P.PNANES_ITS ---
[facility] Anesthesia Record Part II Anesthesia Record Part II Discharge Time: 15:55 Destination: Surgical Day Care (OP Surgery) PACU nurse assessment reviewed?: Yes Patient Condition:: Good Anesthesia Complications:: None Swallowing reflex intact?: Yes Cyanosis?: No Blood Pressure: 132/72 Pulse Rate: 80 Temperature: 98 F Mental Status: Alert & Oriented Pain level:: 0 Nausea and/or vomitting:: None Intake, IV Amount: 0
--- NOTE | 2022-08-21 10:35 | PC.NURSE ---
Patient up and ambulating in the hallway.
--- NOTE | 2022-08-21 11:35 | EXP.PN ---
Subjective *Date: 08/21/22 *Time: 11:35 Interval history: Date of service August 21, 2022 The patient reports improved abdominal pain. She reports adequate pain control. She is requesting something to eat. Nursing staff report that she remains afebrile with stable heart rates and some low blood pressures this morning. She is saturating appropriately on room air. Her morning labs have been reviewed, discussed and personally interpreted as follows: CBC with a normal white blood cell count 9.1, stable hemoglobin 12.3 and normal platelets. Her electrolytes identify sodium 130, potassium 4.1, chloride 99, BUN 6 and normal creatinine 0.5. CT of the abdomen pelvis identified appendicitis with gastric thickening and she has been placed on PPI therapy. Exam Data for Last 24 hours Vital signs and Labs for Last 24 Hours: Temp Pulse Resp BP Pulse Ox 98 F 80 16 132/72 97 08/21/22 08:41 08/21/22 08:41 08/21/22 08:00 08/21/22 08:41 08/21/22 08:00 Laboratory Results - last 24 hr 08/20/22 10:37: SARS-CoV-2 (PCR) Not detected, Influenza A Untype (PCR) Not detected, Influenza Type B (PCR) Not detected 08/20/22 14:00: Urine Color Yellow, Urine Appearance Clear, Urine pH 6.5, Ur Specific [place] <= 1.005, Urine Protein Negative, Urine Glucose (UA) Negative, Urine Ketones 1+, Urine Blood 2+, Urine Nitrate Negative, Urine Bilirubin Negative, Urine Urobilinogen 0.2, Ur Leukocyte Esterase Negative, Urine RBC Occasional, Urine WBC None, Ur Squamous Epith Cells None, Urine Bacteria None 08/21/22 05:20: WBC 9.1 D, RBC 4.02 L, Hgb 12.3, Hct 38.7, MCV 96.1, MCH 30.5, MCHC 31.7 L, RDW 12.4, Plt Count 296, MPV 7.2 L, Neut % (Auto) 83.1 H, Lymph % (Auto) 10.0, [place] % (Auto) 6.5, Eos % (Auto) 0.1, Baso % (Auto) 0.2, Neut # (Auto) 7.6, Lymph # (Auto) 0.9, [place] # (Auto) 0.6, Eos # (Auto) 0.0, Baso # (Auto) 0.0 08/21/22 05:20: Sodium 130 L, Potassium 4.1 D, Chloride 99, Carbon Dioxide 30, Anion Gap 5.1, BUN 6 L, Creatinine 0.50 L, Estimated Creat Clear 42, Estimated GFR 121, Est GFR ( Amer) 146, Glucose 90 D, Calcium 8.1 L, Magnesium 2.2, TSH 5.31 H I & O for Last 24 hours: Intake & Output 08/18/22 08/19/22 08/20/22 08/21/22 23:59 23:59 23:59 23:59 Intake Total 1680 / 1680 1000 / 1000 Output Total 75 / 75 250 / 250 Balance 1605 / 1605 750 / 750 Weight 51.766 kg 54.068 kg Constitutional Constitutional: no acute distress and cooperative *Routine HEENT Exam Head: Present normocephalic Eye: Present EOMI and PERRL ENT: Present mucous membranes moist *Routine Neck Exam Neck: Present supple; Absent lymphadenopathy *Routine Respiratory Exam Respiratory: Present CTA bilaterally *Routine Cardiovascular Exam Cardiovascular: Present RRR *Routine Abdominal Exam Abdominal: Present soft and normoactive bowel sounds Comments: Postoperative tenderness *Routine Extremities Exam Extremities: Absent cyanosis, clubbing or edema *Routine Skin Exam Skin: Present warm; Absent rash *Routine Neurological Exam Neurological: Present alert, oriented X3, moving all extremities, vision grossly intact, hearing grossly intact and normal speech Routine Psychiatric Exam Psychiatric: Present normal affect, normal thought process, cooperative, good insight and good judgment Assessment and Plan *Assessment and plan (1) Acute appendicitis with localized peritonitis: Status: Deleted Qualifiers: Appendicitis abscess presence: without abscess Appendicitis gangrene presence: without gangrene Appendicitis perforation presence: without perforation Qualified Code(s): K35.30 - Acute appendicitis with localized peritonitis, without perforation or gangrene Category: Medical Code(s): K35.30 - Acute appendicitis with localized peritonitis, without perforation or gangrene (2) Hyponatremia: Status: Acute Category: Medical Code(s): E87.1 - Hypo-osmolality and hyponatremia (3) Osteoporosis: Status: Acute
[2022-08-21 14:25] LABS: Sodium, Urine 22 mmol/L (Not Estab.)
[2022-08-22] VITALS: BP 128/71; PULSE 72; RESP 18; TEMP 36.7; O2SAT 94
[2022-08-22 04:00] VITALS: BP 120/70; PULSE 64; RESP 18; TEMP 36.8; O2SAT 96; BMI 19.5
--- NOTE | 2022-08-22 04:00 | PC.NURSE ---
no change from previous assessment, pt denied need for pain meds through the night, ambulating well, no acute distress vital signs stable, +flatus post op, -bm post op, no other issues or concerns
[2022-08-22 06:21] LABS: Anion Gap 7.4 mEq/L (5-15); Blood Urea Nitrogen 7 mg/dl (7-17); Carbon Dioxide 29 mmol/L (22.0-30.0); Chloride 100 mmol/L (98-107); Creatinine Clearance Estimated 39 mL/min (50-200); Estimated Glomerular Filt Rate 98 ml/min (>60); GFR (African American) 118 ML/MIN (>60); Glucose 90 mg/dl (74-100); Potassium 4.4 mmoL/L (3.5-5.1); Sodium 132 mmol/L (136-145)
[2022-08-22 06:37] LABS: Basophils # 0.1 K/mm3 (0-0.2); Basophils % 1.3 % (0.1-2.0); Eosinophils # 0.2 K/mm3 (0.0-0.4); Eosinophils % 3.7 % (0.1-12.0); Hematocrit 42.4 % (37.0-47.0); Hemoglobin 13.1 g/dL (12.2-16.2); Mean Corpuscular HGB Conc 30.8 g/dL (31.8-35.4); Mean Corpuscular Hemoglobin 29.5 pg (27.0-31.2); Mean Platelet Volume 7.3 fl (7.4-10.4); Monocytes # 0.4 K/mm3 (0.1-1.0); Monocytes % 8.2 % (1.7-9.3); Neutrophils % 64.8 % (37.0-80.0); Platelet Count 344 K/mm3 (142-424); Red Blood Count 4.42 M/mm3 (4.20-5.40); Red Cell Distribution Width 12.2 % (11.5-17.5); White Blood Count 4.6 K/mm3 (4.8-10.8)
--- NOTE | 2022-08-22 07:16 | P.PN_ITS ---
Subjective Patient reports: no new complaints Exam Data for Last 24 hours Vital signs and Labs for Last 24 Hours: Temp Pulse Resp BP Pulse Ox 98.3 F 64 18 120/70 96 08/22/22 04:00 08/22/22 04:00 08/22/22 04:00 08/22/22 04:00 08/22/22 04:00 Laboratory Results - last 24 hr 08/20/22 09:54: Urine Sodium 22 08/22/22 05:58: WBC 4.6 L D, RBC 4.42, Hgb 13.1, Hct 42.4, MCV 96.0, MCH 29.5, MCHC 30.8 L, RDW 12.2, Plt Count 344, MPV 7.3 L, Neut % (Auto) 64.8, Lymph % (Auto) 22.0, [place] % (Auto) 8.2, Eos % (Auto) 3.7, Baso % (Auto) 1.3, Neut # (Auto) 3.0, Lymph # (Auto) 1.0, [place] # (Auto) 0.4, Eos # (Auto) 0.2, Baso # (Auto) 0.1 08/22/22 05:58: Sodium 132 L, Potassium 4.4, Chloride 100, Carbon Dioxide 29, Anion Gap 7.4, BUN 7, Creatinine 0.60, Estimated Creat Clear 39, Estimated GFR 98, Est GFR ( Amer) 118, Glucose 90, Calcium 8.0 L I & O for Last 24 hours: Intake & Output 08/19/22 08/20/22 08/21/22 08/22/22 11:59 11:59 11:59 11:59 Intake Total 2680 / 2680 1400 / 1400 Output Total 325 / 325 675 / 675 Balance 2355 / 2355 725 / 725 Weight 109 lb 119 lb 3.2 oz 110 lb Constitutional Constitutional: no acute distress *Routine Respiratory Exam Respiratory: Absent respiratory distress *Routine Cardiovascular Exam Cardiovascular: Absent tachycardia *Routine Abdominal Exam Abdominal: Present soft Comments: Incisions healing without sign of infection Progress Note: A&P Assessment and plan (1) Acute perforated appendicitis: Problem details: Appendiceal necrosis with focal perforation Status: Acute Assessment and plan: Patient remains afebrile. Her white blood cell count remains normal. Intraoperative findings of necrosis/perforation noted. Okay from surgical standpoint for discharge home with close outpatient follow-up Completion course of Augmentin prescribed secondary to necrotic/perforated nature of appendicitis
[2022-08-22 07:38] VITALS: BP 133/60; PULSE 89; RESP 16; TEMP 36.6; O2SAT 97
--- NOTE | 2022-08-22 07:44 | PC.NURSE ---
Patient walking well around her room and to the bathroom. Denies any current needs. Does request a pain medication with morning medications.
--- NOTE | 2022-08-22 07:50 | EXP.DC.SUM ---
General Admission date:: 08/20/22 Discharge date: 08/22/22 HPI HPI HPI: Ms. De Los Santos is a pleasant 76-year-old female who presented to the ER today with 2 to 3 days of worsening abdominal pain. States pain began over the weekend, responded to ibuprofen with resolution of pain. Until this morning when she woke up that she have acute onset of sharp right lower abdominal pain. Denies any nausea or vomiting. No diarrhea. No fever. She was concerned for appendicitis or rupture of her previous hernia repair. History of's, diverticula cyst, hypothyroidism. Otherwise in generally good health for her age. No other acute complaints today. On presentation to the ER, CT obtained showing appendicitis. Surgery consulted, patient taken to the OR for surgery. Started on empiric antibiotics with Invanz. Medicine consulted for admission. After arriving to the floor, patient is postop. Having some abdominal tenderness from incisions. Denies any nausea. Tolerating clear liquids. Afebrile and hemodynamically stable. On room air. Hospital Course Hospital Course Hospital Course: The patient was admitted to the medical surgical floor with general surgery consult. Blood cultures were acquired that identified no growth to date. Her laboratory studies and inflammatory markers were trended. She was started on IV antibiotic therapy. Her leukocytosis is resolved and her hemoglobin remained stable. On August 20, 2022 she underwent laparoscopic appendectomy that identified a necrotic appendix with severe periappendiceal inflammatory changes. Postoperatively she returned to the medical floor with ongoing IV antibiotic therapy and trial of p.o. intake. Her labs continued to remained stable. She identified increased ambulatory ability and inquired about discharge home. She will be discharged home with oral antibiotic therapy and instructions to see her PCP in 1 week and follow-up with general surgery as scheduled. Exam Data for Last 24 hours Vital signs and Labs for Last 24 Hours: Temp Pulse Resp BP Pulse Ox 97.8 F 89 16 133/60 97 08/22/22 07:38 08/22/22 07:38 08/22/22 07:38 08/22/22 07:38 08/22/22 07:38 Laboratory Results - last 24 hr 08/20/22 09:54: Urine Sodium 22 08/22/22 05:58: WBC 4.6 L D, RBC 4.42, Hgb 13.1, Hct 42.4, MCV 96.0, MCH 29.5, MCHC 30.8 L, RDW 12.2, Plt Count 344, MPV 7.3 L, Neut % (Auto) 64.8, Lymph % (Auto) 22.0, [place] % (Auto) 8.2, Eos % (Auto) 3.7, Baso % (Auto) 1.3, Neut # (Auto) 3.0, Lymph # (Auto) 1.0, [place] # (Auto) 0.4, Eos # (Auto) 0.2, Baso # (Auto) 0.1 08/22/22 05:58: Sodium 132 L, Potassium 4.4, Chloride 100, Carbon Dioxide 29, Anion Gap 7.4, BUN 7, Creatinine 0.60, Estimated Creat Clear 39, Estimated GFR 98, Est GFR ( Amer) 118, Glucose 90, Calcium 8.0 L I & O for Last 24 hours: Intake & Output 08/19/22 08/20/22 08/21/22 08/22/22 23:59 23:59 23:59 23:59 Intake Total 1680 / 1680 2200 / 2400 200 / 200 Output Total 75 / 75 575 / 725 750 / 750 Balance 1605 / 1605 1625 / 1675 -550 / -550 Weight 51.766 kg 54.068 kg 49.895 kg Constitutional Constitutional: no acute distress and cooperative *Routine HEENT Exam Head: Present normocephalic Eye: Present EOMI and PERRL ENT: Present mucous membranes moist *Routine Neck Exam Neck: Present supple; Absent lymphadenopathy *Routine Respiratory Exam Respiratory: Present CTA bilaterally *Routine Cardiovascular Exam Cardiovascular: Present RRR *Routine Abdominal Exam Abdominal: Present soft and normoactive bowel sounds Comments: Postoperative tenderness *Routine Extremities Exam Extremities: Absent cyanosis, clubbing or edema *Routine Skin Exam Skin: Present warm; Absent rash *Routine Neurological Exam Neurological: Present alert, oriented X3, moving all extremities, vision grossly intact, hearing grossly intact and normal speech Routine Psychiatric Exam Psychiatric: Present normal affect, normal thought process, cooperative, good insight and good judgm
--- NOTE | 2022-08-22 08:49 | HMH.PHAINT1 ---
Pharmacy Intervention Comments: Discharge medications discussed with patient. Patient verbalized understanding and had no questions at this time
[2022-08-22 10:04] LABS: Osmolality, Urine 311 mOsmol/kg (.)
[2022-08-22 11:30] VITALS: BP 114/79; PULSE 75; RESP 18; TEMP 36.9; O2SAT 97
--- NOTE | 2022-08-26 11:18 | CARE MANAGER ---
Attempted to contact patient x 2 related to hospital discharge. Left VM. EMELI Ayers
== END 2022-08-22 16:34 | disposition home or self-care (01) ==
LOC: ER 10:22 → 2ND 12:40
PROVIDERS: Family Medicine; Surgery; Admitting Provider Internal Medicine Adolescent Medicine; Emergency Provider Emergency Medicine; PCP Family Medicine; Visit Provider Internal Medicine Adolescent Medicine
PROC: (CPT 44950; principal; 2022-08-20 13:30)
DX: K35.32 Acute appendicitis with perforation, localized peritonitis, and gangrene, without abscess; E87.1 Hypo-osmolality and hyponatremia; E03.9 Hypothyroidism, unspecified; Z20.822 Contact with and (suspected) exposure to COVID-19; Z79.899 Other long term (current) drug therapy
CPT/HCPCS: 44970; G0378; 36415; 74177; 80048; 80053; 81001; 83605; 83690; 83735; 83930; 83935; 84300; 84443; 84484; 85007; 85025; 87040; 88304; 93005; 99285; C9803; J1335; J2405; Q9967; U0003; U0005

== ENCOUNTER → 2022-09-05 06:41 | Outpatient (CLI) | payer MEDICARE, SELFPAY ==
[2022-09-05 18:32] LABS: Adenovirus,PCR Not Detected (NotDetected); Bordetella Pertussis Not Detected (NotDetected); Chlamydophila Pneumoniae, PCR Not Detected (NotDetected); Coronavirus 19, PCR Not Detected (NotDetected); Coronavirus 229E Not Detected (NotDetected); Coronavirus NL63 Not Detected (NotDetected); Coronavirus OC43 Not Detected (NotDetected); Coronovirus HKU1,PCR Not Detected (NotDetected); Influenza A, PCR Not Detected (NotDetected); Influenza AH1, 2009 Not Detected (NotDetected); Influenza AH1, PCR Not Detected (NotDetected); Influenza AH3,PCR Not Detected (NotDetected); Influenza B, PCR Not Detected (NotDetected); Mycoplasma Pneumoniae, PCR Not Detected (NotDetected); Parainfluenza 1, PCR Not Detected (NotDetected); Parainfluenza 2, PCR Not Detected (NotDetected); Parainfluenza 3, PCR Not Detected (NotDetected); Parainfluenza 4, PCR Not Detected (NotDetected); Respiratory Syncytial Virus Not Detected (NotDetected); Rhinovirus/Enterovirus Not Detected (NotDetected)
[2022-09-05 19:33] LABS: Basophils # 0.1 K/mm3 (0-0.2); Basophils % 1.6 % (0.1-2.0); Eosinophils % 0.9 % (0.1-12.0); Hematocrit 38.2 % (37.0-47.0); Hemoglobin 13.1 g/dL (12.2-16.2); Lymphocytes # 0.6 K/mm3 (0.7-4.5); Mean Corpuscular HGB Conc 34.4 g/dL (31.8-35.4); Mean Corpuscular Hemoglobin 33.5 pg (27.0-31.2); Mean Corpuscular Volume 97.2 fl (81-99); Mean Platelet Volume 8.2 fl (7.4-10.4); Monocytes # 0.5 K/mm3 (0.1-1.0); Monocytes % 11.4 % (1.7-9.3); Neutrophils # 3.3 K/mm3 (1.8-7.8); Neutrophils % 73.1 % (37.0-80.0); Platelet Count 416 K/mm3 (142-424); Red Blood Count 3.93 M/mm3 (4.20-5.40); Red Cell Distribution Width 12.6 % (11.5-17.5); White Blood Count 4.5 K/mm3 (4.8-10.8)
[2022-09-05 23:14] LABS: Human Metapneumovirus Detected (NotDetected)
== END ==
LOC: LAB.DROPOF 09-06 06:41
PROVIDERS: PCP Nurse Practitioner; Visit Provider Nurse Practitioner
DX: J06.9 Acute upper respiratory infection, unspecified (principal); R05.9 Cough, unspecified; B97.81 Human metapneumovirus as the cause of diseases classified elsewhere
CPT/HCPCS: 85025; 87581; 87632; 87798; C9803; U0003; U0005

== ENCOUNTER → 2022-11-01 23:32 | Outpatient (CLI) | payer MEDICARE, SELFPAY ==
[2022-11-01 19:12] LABS: Triiodothryronine (T3) Uptake 35 % (23.5-40.5)
[2022-11-01 19:27] LABS: Thyroid Stimulating Hormone 0.29 uIU/mL (0.465-4.68)
[2022-11-01 20:43] LABS: T4 (Thyroxine) 11.3 ug/dl (5.53-11.0)
== END ==
PROVIDERS: Family Medicine; PCP Nurse Practitioner; Visit Provider Nurse Practitioner
DX: R94.6 Abnormal results of thyroid function studies (principal); E87.1 Hypo-osmolality and hyponatremia
CPT/HCPCS: 84436; 84443; 84479

== ENCOUNTER → 2022-12-06 08:31 | Outpatient (CLI) | payer MEDICARE, SELFPAY ==
--- NOTE | 2022-12-06 08:56 | MR_ITS ---
FINAL REPORT CLINICAL HISTORY: hepatic cysts, renal cyst, gastric wall thickening. ct scan 08/20/2022 COMPARISON: 08/20/2022 FINDINGS: Multiplanar MR imaging of the abdomen was performed without and with contrast. There are 2 hepatic masses seen in the left lobe of the liver measuring 3.3 and 2.5 cm with characteristics consistent with simple cysts. There is no evidence of biliary ductal dilatation. The gallbladder has an unremarkable appearance. There is a mass in the upper pole the right kidney measuring 4.9 cm also consistent with a simple cyst. No abnormal fluid collection is seen. No abnormal contrast enhancement is seen on the postcontrast images. Gastric wall thickening seen on prior CT appears improved. IMPRESSION: Hepatic and renal cysts as above. Improved gastric wall thickening. Reviewed, Interpreted and Dictated by Eddie Sam III, MD Transcribed by Alexandria Nelson Authenticated and [facility]
[2022-12-06 09:24] LABS: Blood Urea Nitrogen 13 mg/dl (7-17); Estimated Glomerular Filt Rate 82 ml/min (>60); GFR (African American) 99 ML/MIN (>60)
[2022-12-06 09:42] LABS: T4 (Thyroxine) 7.6 ug/dl (5.53-11.0)
[2022-12-06 09:56] LABS: Thyroid Stimulating Hormone 8.21 uIU/mL (0.465-4.68)
== END ==
PROVIDERS: PCP Nurse Practitioner; Visit Provider Nurse Practitioner
DX: E87.1 Hypo-osmolality and hyponatremia (principal); K31.89 Other diseases of stomach and duodenum; K76.89 Other specified diseases of liver; N28.1 Cyst of kidney, acquired
CPT/HCPCS: 36415; 74183; 82565; 84436; 84443; 84520; A9576

== ENCOUNTER → 2022-12-17 09:32 | Outpatient (CLI) | payer MEDICARE, SELFPAY ==
--- NOTE | 2022-12-17 09:32 | XR_ITS ---
FINAL REPORT TECHNIQUE: Bone densitometry calculations of the lumbar spine and left hip were obtained. CLINICAL HISTORY: . post menopausal screening COMPARISON: No prior sent for comparison. FINDINGS: Using L1-4, the bone mineral density of the spine is 0.773 g/cm2, corresponding to T-score of -2.5. Using the left hip, the bone mineral density of the femoral neck is 0.488 g/cm2, corresponding to a T-score of -3.2. Using the right hip, the bone mineral density of the femoral neck is 0.556 g/cm2, corresponding to a T-score of -2.6. NOTE: T-score: Standard deviation compared with peak bone mass of young adult mean. *Following the recommendations of the International Society of Bone Densitometry, classification of hip BMD is based on the lower of two T-scores; total hip or femoral neck. IMPRESSION: Osteoporosis: Lowest T-score is at or below -2.5. This patient's T-score meets the World Health Organization criteria for osteoporosis. FRAX was not reported because some of the T-scores are at or below-2.5. Reviewed, Interpreted and Dictated by Eddie Sam III, MD Transcribed by Kisha Burns Authenticated and [facility]
== END ==
PROVIDERS: PCP Nurse Practitioner; Visit Provider Nurse Practitioner
DX: M81.0 Age-related osteoporosis without current pathological fracture (principal); Z78.0 Asymptomatic menopausal state
CPT/HCPCS: 77080

== ENCOUNTER → 2022-12-20 11:00 | Outpatient (CLI) | payer MEDICARE, SELFPAY ==
[2022-12-20 18:48] LABS: Free T4 (Free Thyroxine) 1.14 ng/dl (0.78-2.19)
[2022-12-20 20:50] LABS: Thyroid Stimulating Hormone 7.65 uIU/mL (0.465-4.68)
== END ==
PROVIDERS: PCP Nurse Practitioner; Visit Provider Nurse Practitioner
DX: E87.1 Hypo-osmolality and hyponatremia (principal)
CPT/HCPCS: 84439; 84443

== ENCOUNTER → 2023-02-03 23:33 | Outpatient (CLI) | payer MEDICARE, SELFPAY ==
[2023-02-03 20:18] LABS: Thyroid Stimulating Hormone 0.91 uIU/mL (0.465-4.68)
[2023-02-05 08:58] LABS: Triiodothyronine (T3) Free 2.3 pg/mL (2.0-4.4)
== END ==
PROVIDERS: PCP Family Medicine; Visit Provider Family Medicine
DX: E87.1 Hypo-osmolality and hyponatremia (principal); E03.9 Hypothyroidism, unspecified
CPT/HCPCS: 84443; 84481

== ENCOUNTER 2023-02-11 14:56 | Emergency (ER) | payer MEDICARE, SELFPAY ==
[2023-02-11 14:56] VITALS: BP 164/78; PULSE 70; RESP 18; TEMP 36.9; O2SAT 95; BMI 20.6
--- NOTE | 2023-02-11 15:13 | EXP.UTC ---
Discharge Plan Disposition Patient Disposition: Home, Self-Care Condition: Good Prescriptions Prescriptions: No Action levothyroxine [Synthroid] 50 mcg tablet 50 mcg PO DAILY Patient Comments: TAKE 1 TABLET BY MOUTH EVERY DAY IN THE MORNING melatonin 5 mg capsule 10 mg PO HS lorazepam 0.5 mg tablet 0.5 mg PO TID PRN (Reason: anxiety) Qty: 90 0RF magnesium oxide [Vaughn] 500 mg tablet 500 mg PO DAILY Centrum Silver 400-250 mcg tablet,chewable 1 tab PO DAILY omega 8-juf-oiw-fish oil [Fish Oil] 1,000 mg (120 mg-180 mg) capsule 1 cap PO DAILY calcium carbonate-vitamin D3 250 mg-3.125 mcg (125 unit) tablet 1 tab PO BID citalopram 10 mg tablet 10 mg PO DAILY Qty: 90 2RF levothyroxine [Synthroid] 75 mcg tablet 75 mcg PO DIRECTED Patient Comments: TAKE 1 TABLET BY MOUTH EVERY MORNING FRIDAY THROUGH FRIDAY. DO NOT TAKE ANY ON SUNDAYS Referrals Follow up/Referrals: Karma Shi APRN [Primary Care Provider] - See instructions Activity Restrictions/Add. Instructions Additional Instructions/Restrictions: Rest as much time as tolerated and keep your left foot elevated while you do. Watch your salt intake and try to not add any salt to your food. Follow up with Dr. Woodall. Call his office in the morning and let them know what's going on so they can recheck you in a couple of days. GO TO THE ER FOR ANY WORSENING SYMPTOMS OR CONCERNS Clinical Impressions Clinical Impression: Venous insufficiency, Edema of left ankle Instructions Patient Instructions: Chronic Venous Insufficiency, How to Use an Elastic Bandage -- Edema, DI for Dependent Edema, Edema Discharge ED Provider: Randolph Bell [facility] General Stated complaint: left foot and ankle swelling Time Seen by Provider: 02/11/23 15:13 History of Present Illness Provider Complaint: She states that for the past 3 days she has had left ankle and foot swelling. She denies any injury. She denies ankle pain and foot pain. She does have a distant history of having a superficial dvt in one of her legs. She denies any other leg pain or swelling. She denies chest pain and shortness of breath. Related Data Home Medications Medication Instructions Recorded Confirmed calcium carbonate 250 mg-vitamin 1 tab PO BID Supplement 03/28/22 01/21/23 D3 3.125 mcg (125 unit) tablet magnesium oxide 500 mg tablet 500 mg PO DAILY Supplement 03/28/22 01/21/23 (Vaughn) multivit with min-folic 1 tab PO DAILY Supplement 03/28/22 01/21/23 acid-lutein 400 mcg-250 mcg chewable tablet (Centrum Silver) omega 3-eeh-vpe-fish oil 1,000 mg 1 cap PO DAILY Supplement 03/28/22 01/21/23 (120 mg-180 mg) capsule (Fish Oil) melatonin 5 mg capsule 10 mg PO HS 11/12/22 01/21/23 levothyroxine 50 mcg tablet 50 mcg PO DAILY thyroid 11/26/22 02/11/23 (Synthroid) levothyroxine 75 mcg tablet 75 mcg PO DIRECTED thyroid 02/11/23 02/11/23 (Synthroid) Previous Rx's Medication Instructions Recorded lorazepam 0.5 mg tablet 0.5 mg PO TID PRN anxiety #90 tabs 11/12/22 citalopram 10 mg tablet 10 mg PO DAILY #90 tabs 12/04/22 Allergies Allergy/AdvReac Type Severity Reaction Status Date / Time amoxicillin Allergy Mild Rash Verified 02/11/23 15:25 ciprofloxacin Allergy Verified 02/11/23 15:25 metronidazole Allergy Verified 02/11/23 15:25 Sulfa (Sulfonamide Allergy Verified 02/11/23 15:25 Antibiotics) [facility] Disclaimer: The information contained in this section may have been updated after the patient was seen, as this information can be updated by other users. Medical History Acquired hypothyroidism Advance directive on file Cataracts, bilateral Colon polyp Diverticulosis Fibrocystic breast disease Gastric wall thickening Grief counseling Hepatic cyst Hyperlipidemia Hypothyroid Osteoporosis Postmenopausal Renal cyst Situation
--- NOTE | 2023-02-11 15:22 | CA_ITS ---
FINAL REPORT TECHNIQUE: Color Doppler, duplex Doppler and compression sonography of the left lower extremity deep venous systems was performed. CLINICAL HISTORY: swollen left ankle, denies trauma. Patient had SVT 20 years ago in back of knee RLE. Patient does have varicosities in the distal left thigh. FINDINGS: There is no evidence of deep venous thrombosis from the level of the groin to the calf. The veins are patent and compressible. IMPRESSION: No evidence of deep venous thrombosis left lower extremity. Reviewed, Interpreted and Dictated by Eddie Sam III, MD Transcribed by Kisha Burns Authenticated and [facility]
[2023-02-11 16:39] VITALS: BP 164/78; PULSE 70; RESP 18; TEMP 36.9; O2SAT 95
== END 2023-02-11 16:30 | disposition home or self-care (01) ==
PROVIDERS: Emergency Provider Nurse Practitioner Family; PCP Nurse Practitioner
DX: I87.2 Venous insufficiency (chronic) (peripheral) (principal); M25.472 Effusion, left ankle; E03.9 Hypothyroidism, unspecified; E78.5 Hyperlipidemia, unspecified; E55.9 Vitamin D deficiency, unspecified; M81.0 Age-related osteoporosis without current pathological fracture
CPT/HCPCS: 93971; 99204; 99212; G0463

== ENCOUNTER → 2023-04-01 10:54 | Outpatient (CLI) | payer MEDICARE, SELFPAY ==
[2023-04-01 17:52] LABS: Basophils % 1.1 % (0.1-2.0); Eosinophils # 0.2 K/mm3 (0.0-0.4); Eosinophils % 4.5 % (0.1-12.0); Hematocrit 41.9 % (37.0-47.0); Hemoglobin 14.1 g/dL (12.2-16.2); Lymphocytes # 0.9 K/mm3 (0.7-4.5); Lymphocytes % 22.1 % (10-50); Mean Corpuscular HGB Conc 33.7 g/dL (31.8-35.4); Mean Corpuscular Hemoglobin 33.1 pg (27.0-31.2); Mean Corpuscular Volume 98.1 fl (81-99); Mean Platelet Volume 8.7 fl (7.4-10.4); Monocytes # 0.5 K/mm3 (0.1-1.0); Monocytes % 11.3 % (1.7-9.3); Neutrophils # 2.4 K/mm3 (1.8-7.8); Neutrophils % 61.1 % (37.0-80.0); Platelet Count 282 K/mm3 (142-424); Red Blood Count 4.27 M/mm3 (4.20-5.40); Red Cell Distribution Width 12.3 % (11.5-17.5)
[2023-04-01 18:32] LABS: Erythrocyte Sedimentation Rate 10 mm/hr (0-30)
[2023-04-01 19:08] LABS: Uric Acid 3.8 mg/dl (2.5-6.2)
[2023-04-01 19:13] LABS: C-Reactive Protein 0.4 mg/L (0-4)
[2023-04-03 12:41] LABS: RA Latex Turbid. <10.0 IU/mL (<14.0)
[2023-04-04 10:39] LABS: Antinuclear Antibodies, IFA Negative (.)
== END ==
PROVIDERS: PCP Nurse Practitioner; Visit Provider Nurse Practitioner
DX: M79.644 Pain in right finger(s) (principal); K57.90 Diverticulosis of intestine, part unspecified, without perforation or abscess without bleeding
CPT/HCPCS: 84550; 85025; 85651; 86038; 86140; 86431

== ENCOUNTER → 2023-04-07 14:46 | Outpatient (CLI) | payer MEDICARE, SELFPAY ==
--- NOTE | 2023-04-07 14:50 | XR_ITS ---
FINAL REPORT TECHNIQUE: Right third finger 3 views CLINICAL HISTORY: . RIGHT THIRD FINGER PAIN COMPARISON: None FINDINGS: RIGHT THIRD FINGER: There is moderate degenerative change of the distal inter phalangeal joint with small erosions and mild medial subluxation of the distal phalanx. 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 No acute fracture or dislocation is identified. 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 Reviewed, Interpreted and Dictated by Eddie Sam III, MD Transcribed by Guera Garcia Authenticated and [facility]
== END ==
LOC: RAD 14:47
PROVIDERS: PCP Nurse Practitioner; Visit Provider Nurse Practitioner
DX: M79.644 Pain in right finger(s) (principal)
CPT/HCPCS: 73140

== ENCOUNTER → 2023-04-28 08:13 | Outpatient (CLI) | payer MEDICARE, SELFPAY ==
[2023-04-28 19:13] LABS: Coronavirus 19, PCR Not Detected (NotDetected); Influenza A, PCR Not Detected (NotDetected); Influenza B, PCR Not Detected (NotDetected)
== END ==
PROVIDERS: PCP Nurse Practitioner; Visit Provider Nurse Practitioner
DX: J06.9 Acute upper respiratory infection, unspecified (principal)
CPT/HCPCS: 87636

== ENCOUNTER 2023-07-08 19:39 | Outpatient (CLI) | payer MEDICARE, SELFPAY ==
[2023-07-08 19:00] LABS: Alanine Aminotransferase 21 U/L (12-78); Albumin Level 4.4 g/dl (3.5-5.0); Albumin/Globulin Ratio 1.6 (1.1-1.8); Alkaline Phosphatase 69 U/L (38-126); Anion Gap 8.5 mEq/L (5-15); Aspartate Amino Transferase 32 U/L (14-36); Bilirubin,Total 0.3 mg/dl (0.2-1.3); Blood Urea Nitrogen 14 mg/dl (7-17); Calcium 9.2 mg/dl (8.4-10.2); Carbon Dioxide 29 mmol/L (22.0-30.0); Chloride 103 mmol/L (98-107); Estimated Glomerular Filt Rate 82 ml/min (>60); GFR (African American) 99 ML/MIN (>60); Globulin 2.7 g/dL (1.3-3.2); Glucose 92 mg/dl (74-100); Potassium 4.5 mmoL/L (3.5-5.1); Sodium 136 mmol/L (136-145); Total Protein,Serum 7.1 g/dl (6.3-8.2)
[2023-07-08 19:31] LABS: Thyroid Stimulating Hormone 2.73 uIU/mL (0.465-4.68)
== END 2023-07-08 23:59 ==
LOC: LAB.DROPOF 19:39
PROVIDERS: PCP Family Medicine; Visit Provider Family Medicine
DX: E03.9 Hypothyroidism, unspecified (principal)
CPT/HCPCS: 80053; 84443

== ENCOUNTER 2023-11-20 18:00 | Outpatient (CLI) | payer MEDICARE, SELFPAY | END 2023-11-20 23:59 | disposition home or self-care (01) | LOC: LAB.DROPOF 11-21 14:27 | PROVIDERS: PCP Nurse Practitioner; Visit Provider Nurse Practitioner | DX: R30.0 Dysuria (principal); B96.20 Unspecified Escherichia coli [E. coli] as the cause of diseases classified elsewhere | CPT/HCPCS: 87086; 87088; 87186 ==

== ENCOUNTER 2023-11-26 13:50 | Outpatient (CLI) | payer MEDICARE, SELFPAY | END 2023-11-26 23:59 | disposition home or self-care (01) | LOC: LAB.DROPOF 11-27 10:08 | PROVIDERS: PCP Nurse Practitioner; Visit Provider Nurse Practitioner | DX: N39.0 Urinary tract infection, site not specified (principal) | CPT/HCPCS: 87086; 87088; 87186 ==

== ENCOUNTER 2023-11-27 10:13 | Outpatient (CLI) | payer MEDICARE, SELFPAY ==
[2023-11-27 19:18] LABS: Basophils # 0.1 K/mm3 (0-0.2); Basophils % 1.2 % (0.1-2.0); Eosinophils # 0.2 K/mm3 (0.0-0.4); Eosinophils % 3.6 % (0.1-12.0); Hematocrit 46.6 % (37.0-47.0); Hemoglobin 14.7 g/dL (12.2-16.2); Lymphocytes # 1.1 K/mm3 (0.7-4.5); Mean Corpuscular HGB Conc 31.6 g/dL (31.8-35.4); Mean Corpuscular Hemoglobin 31.2 pg (27.0-31.2); Mean Corpuscular Volume 98.6 fl (81-99); Mean Platelet Volume 8.3 fl (7.4-10.4); Monocytes # 0.5 K/mm3 (0.1-1.0); Monocytes % 8.8 % (1.7-9.3); Neutrophils # 3.3 K/mm3 (1.8-7.8); Neutrophils % 64.5 % (37.0-80.0); Platelet Count 391 K/mm3 (142-424); Red Blood Count 4.73 M/mm3 (4.20-5.40); Red Cell Distribution Width 12.4 % (11.5-17.5); White Blood Count 5.1 K/mm3 (4.8-10.8)
[2023-11-27 20:09] LABS: Alanine Aminotransferase 18 U/L (12-78); Albumin Level 4.4 g/dl (3.5-5.0); Albumin/Globulin Ratio 1.4 (1.1-1.8); Alkaline Phosphatase 84 U/L (38-126); Anion Gap 13.5 mEq/L (5-15); Aspartate Amino Transferase 31 U/L (14-36); Bilirubin,Total 0.6 mg/dl (0.2-1.3); Blood Urea Nitrogen 12 mg/dl (7-17); Calcium 9.6 mg/dl (8.4-10.2); Carbon Dioxide 29 mmol/L (22.0-30.0); Chloride 96 mmol/L (98-107); Chol/HDL Ratio 2.5 (1-3.5); Cholesterol 223 mg/dl (140-200); Estimated Glomerular Filt Rate 97 ml/min (>60); GFR (African American) 118 ML/MIN (>60); Globulin 3.1 g/dL (1.3-3.2); Glucose 97 mg/dl (74-100); HDL Cholesterol 89 mg/dl (40-60); Potassium 4.5 mmoL/L (3.5-5.1); Sodium 134 mmol/L (136-145); Total Protein,Serum 7.5 g/dl (6.3-8.2); Triglycerides 81 mg/dl (30-150); VLDL Cholesterol 16 mg/dL (0-40)
[2023-11-27 20:19] LABS: Free T4 (Free Thyroxine) 1.55 ng/dl (0.78-2.19)
[2023-11-27 20:20] LABS: Direct LDL Cholesterol 102.44 mg/dL (100-129)
[2023-11-27 20:24] LABS: 25-OH Vitamin D, Total 46.4 ng/mL (30-100)
[2023-11-27 20:40] LABS: Thyroid Stimulating Hormone 1.26 uIU/mL (0.465-4.68)
[2023-11-27 20:59] LABS: Vitamin B12 968 pg/mL (239-931)
== END 2023-11-27 23:59 | disposition home or self-care (01) ==
LOC: LAB.DROPOF 11-28 10:13
PROVIDERS: PCP Nurse Practitioner; Visit Provider Nurse Practitioner
DX: E78.5 Hyperlipidemia, unspecified (principal); E55.9 Vitamin D deficiency, unspecified; E03.9 Hypothyroidism, unspecified; M81.0 Age-related osteoporosis without current pathological fracture; Z68.21 Body mass index [BMI] 21.0-21.9, adult
CPT/HCPCS: 80050; 80053; 80061; 82306; 82607; 84439; 84443; 85025

== ENCOUNTER 2023-12-03 10:41 | Outpatient (CLI) | payer MEDICARE, SELFPAY ==
--- NOTE | 2023-12-03 10:43 | US_ITS ---
FINAL REPORT CLINICAL HISTORY: left foot edema and intermittent cyanosis. Chronic varicosities FINDINGS: LOWER EXTREMITY SEGMENTAL PRESSURE MEASUREMENTS Pressure indices are as follows: RIGHT LOWER EXTREMITY: Lower thigh: 0.96 Calf: 0.98 Ankle, posterior tibial artery: 0.96 Ankle, dorsalis pedis: 0.92 Toe: 0.85 LEFT LOWER EXTREMITY: Lower thigh: 0.91 Calf: 0.97 Ankle, posterior tibial artery: 0.92 Ankle, dorsalis pedis: 0.96 Toe: 0.85 IMPRESSION: Pressure indices are normal. Reviewed, Interpreted and Dictated by Avery Morales MD Transcribed by Kisha Burns Authenticated and [facility]
== END 2023-12-03 23:59 | disposition home or self-care (01) ==
LOC: RT 10:43
PROVIDERS: PCP Family Medicine; Visit Provider Nurse Practitioner
DX: L81.9 Disorder of pigmentation, unspecified (principal); R60.0 Localized edema
CPT/HCPCS: 93923

== ENCOUNTER 2024-01-27 19:13 | Outpatient (CLI) | payer MEDICARE, SELFPAY | END 2024-01-27 23:59 | disposition home or self-care (01) | LOC: LAB.DROPOF 19:15 | PROVIDERS: PCP Nurse Practitioner; Visit Provider Nurse Practitioner | DX: N39.0 Urinary tract infection, site not specified (principal); B96.20 Unspecified Escherichia coli [E. coli] as the cause of diseases classified elsewhere | CPT/HCPCS: 87086; 87088; 87186 ==

== ENCOUNTER 2024-04-13 08:00 | Outpatient (POV) | payer MEDICARE, SELFPAY | END 2024-04-13 23:59 | disposition home or self-care (01) | LOC: SC 04-14 07:38 | PROVIDERS: Visit Provider Dermatology | DX: Z00.00 Encounter for general adult medical examination without abnormal findings (principal) ==

== ENCOUNTER 2024-05-25 11:30 | Outpatient (CLI) | payer MEDICARE, SELFPAY ==
[2024-05-25 18:39] LABS: Alanine Aminotransferase 20 U/L (12-78); Albumin Level 4.2 g/dl (3.5-5.0); Albumin/Globulin Ratio 1.6 (1.1-1.8); Alkaline Phosphatase 80 U/L (38-126); Anion Gap 10.8 mEq/L (5-15); Aspartate Amino Transferase 33 U/L (14-36); Bilirubin,Total 0.4 mg/dl (0.2-1.3); Blood Urea Nitrogen 14 mg/dl (7-17); Calcium 9.4 mg/dl (8.4-10.2); Carbon Dioxide 28 mmol/L (22.0-30.0); Chloride 100 mmol/L (98-107); Estimated Glomerular Filt Rate 97 ml/min (>60); GFR (African American) 118 ML/MIN (>60); Globulin 2.6 g/dL (1.3-3.2); Glucose 87 mg/dl (74-100); Potassium 4.8 mmoL/L (3.5-5.1); Sodium 134 mmol/L (136-145); Total Protein,Serum 6.8 g/dl (6.3-8.2)
[2024-05-25 19:07] LABS: Thyroid Stimulating Hormone 2.68 uIU/mL (0.465-4.68)
== END 2024-05-25 23:59 | disposition home or self-care (01) ==
LOC: LAB.DROPOF 05-26 12:37
PROVIDERS: PCP Family Medicine; Visit Provider Family Medicine
DX: E03.9 Hypothyroidism, unspecified (principal); I10 Essential (primary) hypertension
CPT/HCPCS: 80053; 84443

== ENCOUNTER 2024-08-05 23:30 | Outpatient (CLI) | payer MEDICARE, SELFPAY ==
[2024-08-05 23:44] LABS: Coronavirus 19, PCR Not Detected (NotDetected); Human Rhinovirus Not Detected (NotDetected); Influenza A, PCR Not Detected (NotDetected); Influenza B, PCR Not Detected (NotDetected); Respiratory Syncytial Virus Not Detected (NotDetected)
== END 2024-08-05 23:59 | disposition home or self-care (01) ==
PROVIDERS: PCP Nurse Practitioner; Visit Provider Nurse Practitioner
DX: J06.9 Acute upper respiratory infection, unspecified (principal)
CPT/HCPCS: 87631

== ENCOUNTER 2024-08-31 11:21 | Outpatient (CLI) | payer MEDICARE, SELFPAY ==
[2024-08-31 18:53] LABS: Basophils # 0.1 K/mm3 (0-0.2); Basophils % 1.3 % (0.1-2.0); Eosinophils # 0.2 K/mm3 (0.0-0.4); Eosinophils % 4.7 % (0.1-12.0); Hemoglobin 13.7 g/dL (12.2-16.2); Lymphocytes % 25.1 % (10-50); Mean Corpuscular HGB Conc 32.6 g/dL (31.8-35.4); Mean Corpuscular Hemoglobin 31.1 pg (27.0-31.2); Mean Corpuscular Volume 95.2 fl (81-99); Monocytes # 0.6 K/mm3 (0.1-1.0); Monocytes % 15.7 % (1.7-9.3); Neutrophils % 52.7 % (37.0-80.0); Platelet Count 302 K/mm3 (142-424); Red Blood Count 4.41 M/mm3 (4.20-5.40); Red Cell Distribution Width 11.6 % (11.5-17.5); White Blood Count 3.8 K/mm3 (4.8-10.8)
[2024-08-31 19:41] LABS: Alanine Aminotransferase 18 U/L (12-78); Albumin Level 4.4 g/dl (3.5-5.0); Albumin/Globulin Ratio 1.7 (1.1-1.8); Alkaline Phosphatase 68 U/L (38-126); Anion Gap 8.2 mEq/L (5-15); Aspartate Amino Transferase 28 U/L (14-36); Bilirubin,Total 0.4 mg/dl (0.2-1.3); Blood Urea Nitrogen 14 mg/dl (7-17); Calcium 9.5 mg/dl (8.4-10.2); Carbon Dioxide 29 mmol/L (22.0-30.0); Chloride 99 mmol/L (98-107); Estimated Glomerular Filt Rate 97 ml/min (>60); GFR (African American) 118 ML/MIN (>60); Globulin 2.6 g/dL (1.3-3.2); Glucose 81 mg/dl (74-100); Potassium 4.2 mmoL/L (3.5-5.1); Sodium 132 mmol/L (136-145)
== END 2024-08-31 23:59 | disposition home or self-care (01) ==
LOC: LAB.DROPOF 09-01 12:31
PROVIDERS: PCP Family Medicine; Visit Provider Family Medicine
DX: I10 Essential (primary) hypertension (principal)
CPT/HCPCS: 80053; 85025

== ENCOUNTER 2024-12-06 09:27 | Outpatient (CLI) | payer MEDICARE, SELFPAY ==
--- OUTSIDE RECORDS SUMMARY | 2024-12-06 09:29 | XMS_ITS | Clinical Summary ---
Author Organization [facility] [place] Address [address] [place] [address] Phone Care Team Providers Care Junior Project Coordinator Name Role Phone Karma Shi JEEVAN Primary Care Provider [phone] Allergies No known active allergies Medications levothyroxine (SYNTHROID) 75 mcg Oral Tablet Take by mouth daily. Takes 1 tab Friday through Friday Active multivitamin with antioxidants (CENTRUM SILVER) 0.4-300-250 mg-mcg-mcg Oral Tablet Take 1 Tab by mouth daily. Active BIOTIN ORAL Take 1 Tab by mouth daily. Hair, Skin and Nails Active calcium carbonate/vitamin D3 (CALTRATE 600 + D ORAL) Take 1 Tab by mouth 2 times daily. Active ascorbic acid, vitamin C, (VITAMIN C) 500 mg Oral Tablet Take 500 mg by mouth daily. Active L gasseri/B bifidum/B longum ([employer] [facility] ORAL) Take by mouth. Active psyllium husk (METAMUCIL ORAL) Take by mouth. Active citalopram (CELEXA) 10 mg Oral Tablet Take 10 mg by mouth daily. Active Active Problems No known active problems Surgical History Surgery Date Site/Laterality Comments HYSTERECTOMY HERNIA REPAIR TONSILLECTOMY COLPOSCOPY Medical History Medical History Date Comments Hormone disorder Family History Medical History Relation Name Comments Heart Failure Maternal Uncle Heart Failure Mother Relation Name Status Comments Maternal Uncle Mother Social History Tobacco Use Types Packs/Day Years Used Date Smoking Tobacco: Never Smokeless Tobacco: Never Tobacco Cessation:Counseling Given: Not Answered Alcohol Use Standard Drinks/Week Comments No 0 (1 standard drink = 0.6 oz pur e alcohol) Sexually Active Control Partners Comments Never Comments No Sex and Gender Information Value Date Recorded Sex Assigned at Not on file Legal Sex Female 7:52 AM EDT Gender Identity Not on file Sexual Orientation Not on file Obstetrics History Para Term AB IAB SAB Ectopic Multiple Livin g Live Births 1 1 Date Outcome GA Total Labor Labor/2nd/3rd Weight Sex Type Anes PTL Margarita A1 A5 Name Clin Para Last Filed Vital Signs Vital Sign Reading Time Taken Comments Blood Pressure 150/90 03/13/2023 9:24 AM EDT Pulse 56 03/13/2023 9:24 AM EDT Temperature 36.1 C (96.9 F) 02/28/2021 9:47 AM EDT Respiratory Rate 16 11/22/2020 8:57 AM EDT Oxygen Saturation 95% 03/13/2023 9:24 AM EDT Inhaled Oxygen Concentration - - Weight 51.8 kg (114 lb 3.2 oz) 03/13/2023 9:24 A M EDT Height 157.5 cm (5' 2 ) 04/04/2022 9:10 AM EDT Body Mass Index 20.89 04/04/2022 9:10 AM EDT Plan of Treatment Health Maintenance Due Date Last Done Comments Wellness Exam Medicare 10/05/1948 Hepatitis C Screening 10/05/1965 Pneumococcal Vaccine 50+ (1 of 1 - PCV) 10/05/1997 Bone Density Screening 10/05/2012 RSV or 60+ (1 - 1-dose 75+ series) 10/05/2022 COVID-19 Vaccine ( season) 2024 01/14/2022, 04/02/2021, 08/08/2020, Additional history exists Influenza Vaccine (Season Ended) 2025 03/01/2021, 02/12/2021, 02/28/2020, Additional history exists DTaP/TDaP/Td (2 - Td or Tdap) 05/05/2027 05/05/2017 Zoster Completed 05/14/2018, 03/06/2018 Hepatitis B Vaccine Aged Out No longe r eligible based on patient's age to complete this topic Meningococcal B Vaccine Aged Out No l onger eligible based on patient's age to complete this topic Insurance Care Teams Junior Project Coordinator Relationship Specialty Start Date End Date Karma Shi APRN [address] [facility] [address] [place] [address] PCP - General Nurse Practitioner 03/29/16
--- OUTSIDE RECORDS SUMMARY | 2024-12-06 09:29 | XMS_ITS | Data Portability ---
Author Organization SARAI AIDE Marx [facility] Address [address] [facility] [address] [place] [address] Care Team Providers Care Client Advisor Name Role Phone CASSY ANGLIN Primary Care Provider Assessment Encounter Date Assessment Date Assessment LastModified by Organization Details LastModified Time 01/09/2022 01/09/2022 1. History of Graves' disease s/p DELATORRE 2. Post ablative hypothyroidism Clinically patient appears euthyroid Thyroid function studies pending Continue Synthroid 75 mcg 6 days a week, dose adjustment pending lab results Follow-up in 6 months aamine Not available 01/09/2022 11:25:30 Plan of Treatment Reminders Order Date Submit Date Provider Last Modified By Organization Details Last Modified Time Details Appointments RECHECK 2025 09:00A Baylee PAULINO MD Not available Not available Not available Lab TSH, serum or plasma 2024 026 [facility], [address] [place] [address], [id number], 11/25/2024 08:32:35 T4, free, serum 2024 026 [facility], [address] [place] [address], [phone], 11/25/2024 08:32:35 T3, free, serum or plasma 2024 026 [facility], [address] [place] [address], [id number], 11/25/2024 08:32:35 T4, free, serum 2023 024 [facility], [address] [place] [address], [id number], 11/14/2023 10:35:10 TSH, serum or plasma 2023 024 [facility], [address] [place] [address], [id number], 11/14/2023 10:35:12 T3, free, serum or plasma 2023 024 [facility], [address] [place] [address], [phone], 11/14/2023 11:13:33 TSH, serum or plasma 2022 023 [email or web address] 1 [facility], [address] [place] [address], [phone], 12/27/2022 08:53:34 T4, free, serum 2022 023 [email or web address] 1 [facility], [address] [place] [address], [id number], 12/27/2022 08:53:35 Referral None recorded. Procedures None recorded. Surgeries None recorded. Imaging None recorded. Medication Orders Synthroid 75 mcg tablet 2022 023 [email or web address] 50 [id number], [address] [place] [address], [id number], 01/06/2023 14:35:38 Synthroid 75 mcg tablet 2022 023 [id number], [address] [place] [address], [id number], 11/12/2022 14:33:14 Synthroid 75 mcg tablet 2021 022 [id number], [address] [place] [address], [id number], 11/12/2022 14:33:14 Patient TargetsNo targets recorded. Patient InstructionsNo instructions recorded. Reason for Referral None Reported. Results Created Date Observation Date Name Description Value Unit Range Abnormal Flag Note LastModifiedBy Organization Detail LastModifiedTime 01/10/20 22 01/09/2022 TSH TSH 1.540 uIU/m L 0.270- 4.200 normal Not Available [facility] [address] [place] [address], [phone], 01/09/2022 09:34:21 01/10/20 22 01/09/2022 T4,FR EE T4,free 1.47 NG/dL 0.93-1 .70 normal Not Available [facility] [address] [place] [address], [phone], 01/09/2022 09:34:23 09/24/19 23 09/23/2022 TSH TSH 5.640 uIU/m L 0.270- 4.200 high Not Available [facility] [address] [place] [address], [id number], 09/23/2022 09:35:07 09/24/19 23 09/23/2022 T4,FR EE T4,free 1.42 NG/dL 0.93-1 .70 normal Not Available [facility] [address] [place] [address], [phone], 09/23/2022 09:35:08 11/14/19 24 11/14/2023 T4,FR EE T4,free 1.33 NG/dL 0.93-1 .70 normal Not Available [facility] [address] [place] [address], [phone], 11/14/2023 10:35:10 11/14/19 24 11/14/2023 TSH TSH 3.000 u[IU] /mL 0.270- 4.200 normal Not Available [facility] [address] [place] [address], [phone], 11/14/2023 10:35:12 11/14/19 24 11/14/2023 T3 FREE T3 free 2.39 pg/mL 2.00-4 .40 normal Not Available [facility] [address] [place] [address], [phone], 11/14/2023 11:13:33 11/26/19 25 11/25/2024 T3 FREE T3 free 2.55 pg/mL 2.00-4 .40 normal Not Available [facility] [address] [place] [address], [phone], 11/25/2024 09:28:33 11/26/19 25 11/25/2024 T4,FR EE T4,free 1.31 NG/dL 0.93-1 .70 normal Not Available [facility] [address] [place] [address], [id number], 11/25/2024 09:28:34 11/26/19 25 11/25/2024 TSH TSH 1.910 u[IU] /mL 0.270- 4.200 normal Not Available [facility] [address] [place] [address], [id number], 11/25/2024 09:28:35 Result Notes None recorded. Problems Name Problem SNOMED Code Status Onset Date Resolution Date Notes Provider Name and Address Organization Details Recorded Time Postoperat jacob hypothyroi dism [id number] Active 2015 From Automated Load;Provi shefali: Akhtar, Shelbi;St atus: Active Not Available [facility] 6 02:18:08 Problem Notes None recorded. 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 Procedure Notes None recorded. Medical Equipment None Reported. Allergies No known drug allergies Medications Name Sig Start Date Stop Date Status Note LastModified by Organization Details LastModified Time Caltrate-6 00 Plus Vitamin D3 600 mg-200 unit tablet Daily 2 daily - 1 am/1pm active Frequency: daily;Medi cation Descriptio n: calcium and vitamin D combinatio n; Dosage:1; Route:oral ; refills:0 Not Available Not Available Not Available Multiple Vitamin capsule Daily active Frequency: daily;Medi cation Descriptio n: multivitam in; Dosage:1; Route:oral ; refills:0 Not Available Not Available Not Available Synthroid 75 mcg tablet TAKE 1 TABLET BY MOUTH EVERY OTHER MORNING 2024 active rotating with Synthroid 50 mcg. Not Available Not Available Not Available Synthroid 50 mcg tablet TAKE 1 TABLET BY MOUTH EVERY OTHER DAY IN THE MORNING 2024 active rotating with Synthroid 75 mcg. Not Available Not Available Not Available Vitamin C 250 mg tablet Take 2 tablets every day by oral route. 2020 active Not Available Not Available Not Avai lable Hairvite tablet active Medication Descriptio n: multivitam in with minerals; Route:oral ; refills:0 Not Available Not Available Not Available Fish Oil 300 mg-1,000 mg capsule,de layed release Daily active Frequency: daily;[facility] cation Descriptio n: omega-3 polyunsatu rated fatty acids; Dosage:1; Route:oral ; refills:0 Not Available Not Available Not Available Broken Buy 1.5 billion cell capsule Take by oral route. active Not Available Not Available No t Available Vitals Date Recorded Body height Body mass index (BMI) Body weight Heart rate Systolic blood pressure Diastolic blood pressure Provider Name and Address Organization Details Last Updated DateTime 3 158.75 cm 19.6 kg/m2 94987.5 7 g 58 /min 125 mm[Hg] 80 mm[Hg] [facility] 3 08:46:19 Date Recorded Body height Body mass index (BMI) Body weight Heart rate Systolic blood pressure Diastolic blood pressure Provider Name and Address Organization Details Last Updated DateTime 3 158.75 cm 19.6 kg/m2 02163.5 7 g 60 /min 125 mm[Hg] 75 mm[Hg] [facility] 3 08:47:35 Date Recorded Body weight Body mass index (BMI) Body height Heart rate Systolic blood pressure Diastolic blood pressure Provider Name and Address Organization Details Last Updated DateTime 4 82044.9 g 21.6 kg/m2 157.48 cm 70 /min 122 mm[Hg] 74 mm[Hg] [facility] 10[facility]48 Date Recorded Body weight Body mass index (BMI) Body height Systolic blood pressure Diastolic blood pressure Provider Name and Address Organization Details Last Updated DateTime 11/25/2024 73331.08 g 21.9 kg/m2 157.48 cm 122 mm[Hg] 78 mm[Hg] Jyoti [facility] 5 08:19:16 Date Recorded Body height Body mass index (BMI) Body weight Heart rate Systolic blood pressure Diastolic blood pressure Provider Name and Address Organization Details Last Updated DateTime 2 158.75 cm 21.4 kg/m2 84196.4 9 g 61 /min 128 mm[Hg] 84 mm[Hg] Clari Akers [facility] 2 08:44:34 Social History Question Answer Notes LastModified by Buddyizat ion Details LastModified Time Tobacco Smoking Status [facility]2016 08:30:34 How Much Tobacco Do You Chew? None Information not available 01/11/2020 What Was The Date Of Your Most Recent Tobacco Screening? 12/31/2017 Information n ot available 07/27/2019 How Much Tobacco Do You Smoke? No Information not available 01/11/2020 How Many Years Have You Smoked Tobacco? 0 Information not available 01/11/2020 Sex: Unknown Functional Status Question Answer Note LastModified by Organizat ion Details LastModified Time Do you or have you ever used smokeless tobacco? Never used smokeless tobacco Information not available 01/11/2020 Do you or have you ever used e-cigarettes or vape? Never used electronic cigarettes Information not available 01/11/2020 Mental Status None recorded. Family History Relationship Description Onset Age of this Age Resolved Age Notes LastModified by Organization Details LastModified Time Unspecified Relation Heart disease Not available 2016 08:30:09 Unspecified Relation History of osteoporosis Not available 08:30:26 Medical History Condition Response Hypothyroidism Y Osteoporosis Y Gynecological HistoryNo gynecological history recorded. Obstetrics History GPAL:G 0 P 0 0 0 0 Immunizations Vaccine Type Date Status Note Provider Nam e and Address Organization Details Recorded Time COVID-19, mRNA, LNP-S, PF, 100 mcg/0.5mL dose or 50 mcg/0.25mL dose 07/12/2020 completed SHELBI ORTA, HEPATOLOGIST [address] [place], [place], [address] [place] [address], [facility] 05/10/2021 08:56:58 COVID-19, mRNA, LNP-S, PF, 100 mcg/0.5mL dose or 50 mcg/0.25mL dose 08/08/2020 completed SHELBI ORTA APRN [address] [place] [address], [facility] 05/10/2021 08:57:11 COVID-19, mRNA, LNP-S, PF, 100 mcg/0.5mL dose or 50 mcg/0.25mL dose 04/02/2021 completed SHELBI ORTA, HEPATOLOGIST [address] [place] [address], [facility] 05/10/2021 08:57:18 Influenza, high-dose, trivalent, PF 02/12/2021 completed SHELBI ORTA APRN [address] [place] [address], [facility] 05/10/2021 08:58:01 Past Encounters Encounter ID Performer Location Encounter Start Date Encounter Closed Date Diagnosis/Indication Diagnosis SNOMED-CT Code Diagnosis ICD10 Code Diagnosis Note [id number] SHELBI ORTA APRN [facility] [address] [place] [id number] 12/31/2016 08:08:43 12/31/2016 09:19:07 History of Graves' disease 3564874700 23339 Z86.39 with hyperthyro idism resolved s/p DELATORRE ablation (1982). Postablati ve hypothyroidism 072383778 E89.0 s/p DELATORRE ablation (1982) with evolvement to hypothyroi dism. Continue Synthroid 75 mcg daily pending labs. TSH and FT4 today. How to take discussed. She was instructed to take thyroid hormone upon awakening, 30 minutes before eating and 30 minutes before any other medication . No calcium, iron, or vitamins containing calcium for at least 4 hours due to potential interferen ce with absorption of the thyroid medication . She will need a 30 day RX sent to [facility] in [place], [place] after review of labs. Addendum: TSH 1.04, FT4=1.55. Postmenopa usal osteoporosis 193769627 M81.0 She requested an opinion about treatment for osteoporos is. Discussed risk for fractures and treatment options. She does not want to take bisphospha nates due to risk for osteonecro sis of the jaw and her previous problems, although it might have been unrelated. Discussed Forteo and Prolia. Prolia would still have a risk for osteonecro sis of the jaw but may be somewhat less, so she is going to consider Prolia and discuss with her PCP. She was given a pamphlet about Prolia and osteoporos is today. If she decides to proceed with treatment and it is not given at her PCP's office, she will call and I will order any necessary labs (including CTX since it has been 8 months since her last DEXA) and apply for Prolia approval. I would also ask for a copy of the entire bone density report since it only showed the T-score in the femoral neck ( no mention of the lumbar spine or total hip). [id number] SHELBI ORTA APRN [facility] [address] [place] [address] 12/31/2017 07:41:17 12/31/2017 15:44:37 Postablative hypothyroidism 303821871 E89.0 History of Grave's disease with no history of GED, s/p DELATORRE ablation (1982) with evolvement to hypothyroi dism. Continue Synthroid 75 mcg daily pending labs. TSH and FT4 today.She will need a 30 day RX sent to [facility] in [place], [place] after review of labs.Follo w up in one year with labs as noted below.12/31: TSH 0.812, FT4-1.54. Thyroid level is normal. RX sent to continue Synthroid 75 mcg daily. [id number] SHELBI ORTA APRN [facility] [address] [place] [id number] 12/31/2018 07:41:21 12/31/2018 09:30:50 Postablative hypothyroidism 363891719 E89.0 hypothyroi dism s/p DELATORRE ablation (1982) for Grave's disease with no history of GED.Contin ue Synthroid 75 mcg daily pending labs. TSH and FT4 today.She will need a 90 day RX sent to [facility] in [place], [place] after review of labs.Follo w up in one year with labs as noted below. ADDENDUM: 12/31/18 - TSH 2.07, FT4=1.47. [id number] SHELBI ORTA APRN [facility] [address] [place] [id number] 01/11/2020 08:37:49 01/11/2020 09:44:16 Postablative hypothyroidism 705099264 E89.0 History of Grave's disease with no GED, evolved to hypothyroi dism s/p DELATORRE ablation (1982).Con tinue Synthroid 75 mcg daily pending labs.She will need a 90 day RX sent to [facility] in [place], [place] after review of labs.Follo w up in one year with labs as noted below.ADDE NDUM: TSH 0.342, FT4=1.61 (normal). [id number] SHELBI ORTA APRN [facility] [address] [address] 08/15/2020 08:08:48 08/15/2020 10:27:01 Postablative hypothyroidism 912721238 E89.0 Hypothyroi dism s/p DELATORRE ablation for Grave's disease (1982) with no history of GED. Continue brand Synthroid 50 mcg daily pending labs. Will check TSH and FT4 today. She will need a 90 day RX sent to [facility] in [place], [place] after review of labs. Recommend eye examinatio n. She agrees to call for appt with Dr. Dalton. Keep scheduled appointmen t on 01/11/2021. ADDENDUM: TSH 11.56, FT4=1.27. 75 mcg was too much but 50 mcg is not enough. Will change to 75 mcg tablets to take 1 tablet Friday - Friday and NONE on Friday, which will give her an average of 64 mcg daily. Repeat labs next visit. Unable to reach patient by phone -letter and RX sent. [id number] SHELBI ORTA APRN [facility] [address] [place] [address] 01/11/2021 08:46:29 01/11/2021 16:23:04 Postablative hypothyroidism 030094645 E89.0 History of Grave's disease s/p DELATORRE ablation (1982) with evolvement to hypothyroi dism. Labs 08/15/2020 - TSH 11.56, FT4=1.27 (on 50 mcg daily) Synthroid was increased to 75 mcg -1 tablet Friday - Friday and NONE on Friday, average = 64 mcg daily. Improved but still slightly low per labs today (01/11/2021) : TSH 5.07, FT4=1.27. Discussed that 75 mcg was too much in the past and that her thyroid level is acceptable for her age She feels great on this dose and wants to continue the same medication Instructed to continue Synthroid 75 mcg - 1 tablet Friday - Friday and none on Friday (average = 64 mcg daily). She still has 56 tablets at home. She will call for a 90 day RX about 1 week before she runs out of medication . Follow up with labs in 4 months with labs as noted below. [id number] SHELBI ORTA APRN [facility] [address] [place] [address] 05/10/2021 08:17:12 05/10/2021 09:24:44 Postablative hypothyroidism 441186804 E89.0 History of Grave's disease s/p DELATORRE ablation (1982) with evolvement to hypothyroi dism. Impaired control on Synthroid 50 mcg daily (08/15/2020 - TSH 11.56, FT4=1.27). Synthroid 75 mcg was too much in the past. Synthroid was increased to 75 mcg -1 tablet Friday - Friday and NONE on Friday, average = 64 mcg daily. Improved with a slightly elevated TSH (5.07) and normal FT4 (1.27) per labs 01/11/2021. She felt well. so no medication change was recommende d. Continue Synthroid 75 mcg - 1 tablet Friday - Friday and none on Friday (average = 64 mcg daily) pending labs. She has 51 tablets at home and believes that she has one refill on the bottle. She does not want a RX sent today. She will call when she needs a refill. Follow up in 8 months with labs at that time ADDENDUM: 05/10/2021 - TSH 2.68, FT4=1.42. Her thyroid level is normal. Will continue same dose as noted above. [id number] CHECO MAN DO [facility] [address] [place] [address] 01/09/2022 08:09:37 01/09/2022 09:09:06 Postablative hypothyroidism 584280821 E89.0 [id number] MOODY PAULINO MD [facility] [address] [place] [address] 09/23/2022 08:15:33 09/23/2022 09:47:36 Postablative hypothyroidism 998741059 E89.0 Appears clinically euthyroid We had a discussion about exogenous hypothyroi dism symptoms deleteriou s consequenc es Unremarkab le thyroid exam She will continue current Synthroid dose 75 mcg every 6 days a week Patient was instructed on the appropriat e method of levothyrox in administra tion to be taken every a.m. on an empty stomach as new food, drinks or other medication s for at least 30 minutes. PPI and calcium -containin g preparatio ns is preferred to be given at least of her hours before or after levothyrox in therapy. TSH and free T4 todayFurth er adjustment as appropriat e She is still grieving her passing several weeks ago. She thought that he might have normal thyroid problem and she had several questions and explained to her that I cannot answer those questions based on history and she handed me his TSH which was within normal range. But I explained to her 1 more time that I cannot draw any conclusion s or make any assumption s about her medical history because I have never seen him or evaluated in the clinic. She verbalized understand ing. 1 year follow-up Patient verbalized understand ing and agreed with the above mentioned plan of care. [id number] MOODY PAULINO MD [facility] [address] [place] [address] 1 11/08/2022 08:27:36 11/08/2022 10:30:54 Postablative hypothyroidism 668287289 E89.0 Clinically she still feels tired with anxietySti ll grieving her passingUnr emarkable thyroid examTSH of 0.2 and elevated total T4 of 11.3 on 11/01/2022I initially recommende d to decrease levothyrox ine to 50 mcg every a.m. but she reported not feeling well with that so alternativ festus she will take levothyrox ine 75 mg 5 days a week Recheck TSH and free T4 at an outside facility with results to be faxed to our office 6 months follow-up Patient verbalized understand ing and agreed with the above mentioned plan of care. [id number] MOODY PAULINO MD [facility] [address] [place] [address] 1 11/14/2023 09:28:28 11/14/2023 11:43:19 Postablative hypothyroidism 048076352 E89.0 Clinically she denies any symptoms of hypothyroi dism She also denies any symptoms of exogenous hyperthyro idUnremark able thyroid exam Continue current Synthroid 75 mcg alternatin g with 50 mcg TSH, free T4 today. Requested to have free T3 recheckedF urther adjustment as appropriat e Prescripti on to follow 12 months follow-up or earlier appointmen t as appropriat ePatient verbalized understand ing and agreed with the above mentioned plan of care. [id number] MOODY PAULINO MD [facility] [address] [place] [address] 1 11/25/2024 08:03:21 11/25/2024 08:48:31 Postablative hypothyroidism 239103462 E89.0 Clinically she denies any symptoms of hypothyroi dismShe also denies any symptoms of exogenous hyperthyro idNo thyroid nodularity on thyromegal y physical exam todayConti nue current Synthroid 75 mcg alternatin g with 50 mcg at presentThy roid function test [pending closeFurth er adjustment as appropriat ePrescript ion to follow [requested to hold off on prescripti ons until requested by patient]1 year follow-up or earlier appointmen t as appropriat ePatient verbalized understand ing and agreed with the above mentioned plan of care. Health Concerns Section Related Observation LastModified by Organization Detai ls LastModified Time None Recorded Concern Status LastModified by Organization Details LastModified Time None Recorded Advance Directives Directive None Recorded Payers Insurance Date Sequence Insurance Name Policy Number Policy Gresham Covered Member ID Gresham Member ID Guarantor Name 11/22/2024 1 [employer] (MEDICARE REPLACEMENT/A DVANTAGE - PPO) Katy De Los Santos [id number] Katy De Los Santos Notes Date Note Type Note Provider Name and Address Organization Details Recorded Time 01/09/2022 text/html This is a 76-year-old female with a past medical history significant for Graves' disease s/p DELATORRE, RLS and osteoporosis who presented to the clinic for follow-up of her post ablative hypothyroidism. Patient was last seen on 05/10/2021. Since her last visit she reports no acute illnesses or hospitalizations. In regards to her thyroid disease patient was diagnosed with Graves' disease in the 1980s. She states at the time she had presented with anxiety, hair loss and weight loss. She underwent definitive therapy with DELATORRE. She is currently on Synthroid 75 mcg daily, Friday through Friday and skips a dose on Friday. She reports good compliance. She takes it every morning on an empty stomach. She denies new headaches, changes to her vision, dysphagia, palpitations, tremors or diarrhea. CHECO MAN, [address] [place], [phone], [facility] 01/09/2022 11:25:43 09/23/2022 text/html 76-year-old fema brandt with a past medical history significant for Graves' disease s/p DELATORRE, RLS and osteoporosis who presented to the clinic for 1 year follow-up postablative hypothyroidism She was previously and most recently seen in the clinic by Dr. Man on 01/09/2022 who left our endocrine practice for Since her last visit she reports no acute illnesses or hospitalizations. In regards to her thyroid disease patient was diagnosed with Graves' disease in the . She states at the time she had presented with anxiety, hair loss and weight loss. She underwent definitive therapy with DELATORRE. She is currently on Synthroid 75 mcg daily, Friday through Friday and skips a dose on Friday. She reports good compliance. She takes it every morning on an empty stomach. She denies new headaches, changes to her vision, dysphagia, palpitations, tremors or diarrhea. Reported not feeling well when her Synthroid dose was decreased to 50 mcg. Her this year and she is still grieving. MOODY PAULNIO MD [address] [place] [address], [phone], [facility] 09/23/2022 09:41:21 11/08/2022 text/html 77-year-old femgale carlton with a past medical history significant for Graves' disease s/p DELATORRE, RLS and osteoporosis who presented to the clinic for 6-week follow-up postoperative hypothyroid Last endocrine office visit on 09/23/2022Since her last visit she reports no acute illnesses or hospitalizations.In regards to her thyroid disease patient was diagnosed with Graves' disease in the . She states at the time she had presented with anxiety, hair loss and weight loss. She underwent definitive therapy with DELATORRE. She is currently on Synthroid 75 mcg daily, Friday through Friday and skips a dose on Friday. She reports good compliance. She takes it every morning on an empty stomach. She denies new headaches, changes to her vision, dysphagia, palpitations, tremors or diarrhea.Reported not feeling well when her Synthroid dose was decreased to 50 mcg.Interval history:She is still grieving her passing and she thinks that she had a thyroid disorder She currently takes levothyroxine 75 mcg 6 days a week Still complaining of fatigue and mental fogginess Reported anxiety and she was previously on an anxiolytic medication that she discontinued because she did not feel well on it and reported feeling abnormality at the thyroid location while on her medicine Laboratory work-up done at an outside facility on 11/01/2022 showed low TSH and elevated total T4 MOODY PAULINO MD [address] [place] [address], [id number], [facility] 11/08/2022 09:14:32 11/14/2023 text/html 78-year-old estephania carlton with a past medical history significant for Graves' disease s/p DELATORRE, RLS and osteoporosis who presented to the clinic for 6-week follow-up postoperative hypothyroid Last endocrine office visit on 11/08/2022Since her last visit she reports no acute illnesses or hospitalizations.In regards to her thyroid disease patient was diagnosed with Graves' disease in the . She states at the time she had presented with anxiety, hair loss and weight loss. She underwent definitive therapy with DELATORRE. She is currently on Synthroid 75 mcg daily, Friday through Friday and skips a dose on Friday. She reports good compliance. She takes it every morning on an empty stomach. She denies new headaches, changes to her vision, dysphagia, palpitations, tremors or diarrhea.Reported not feeling well when her Synthroid dose was decreased to 50 mcg. Interval history: Reported feeling much better and she is getting over her passing. Recently started on citalopram and she feels much better on it.She currently takes levothyroxine 75 mcg alternating with 50 mg every dayShe denies any fatigue or lack of energy Intentionally gained some weight with improved appetite. Using less frequently her anxiolytic medicine lorazepam MOODY PAULINO MD [address] [place] [address], [id number], [facility] 11/14/2023 11:34:39 11/25/2024 text/html 79-year-old estephania carlton with a past medical history significant for Graves' disease s/p DELATORRE, RLS and osteoporosis who presented to the clinic for 6-week follow-up postoperative hypothyroid Last endocrine office visit on 11/14/2023Since her last visit she reports no acute illnesses or hospitalizations.In regards to her thyroid disease patient was diagnosed with Graves' disease in the . She states at the time she had presented with anxiety, hair loss and weight loss. She underwent definitive therapy with DELATORRE. She is currently on Synthroid 75 mcg daily, Friday through Friday and skips a dose on Friday. She reports good compliance. She takes it every morning on an empty stomach. She denies new headaches, changes to her vision, dysphagia, palpitations, tremors or diarrhea.Reported not feeling well when her Synthroid dose was decreased to 50 mcg. Interval history:She currently takes brand Synthroid 75 mcg alternating with 50 mcg everyShe denies any fatigue or lack of energy, dry skin, hair loss or recent weight gainShe denies any palpitations, shaking, excessive sweating or recent unintentional weight loss MOODY PAULINO MD [address] [place] [address], [phone], [facility] 11/25/2024 08:32:48 OBGyn Episode No OBEpisode recorded.
--- NOTE | 2024-12-06 09:30 | US_ITS ---
FINAL REPORT CLINICAL HISTORY: cyst COMPARISON: None FINDINGS: Sonographic images of the right upper quadrant were obtained. The pancreas is partially obscured. There is a hypoechoic cyst in the left lobe of the liver measuring 3.9 x 2.9 cm in size. The gallbladder appears normal without evidence of gallstones.There is no evidence of biliary ductal dilatation.The common duct measures 6 mm. There is a dominant cyst present in the upper pole of the right kidney, measuring 6.5 x 5.7 cm in size. IMPRESSION: Dominant right renal cyst as described, 6.5 x 5.7 cm in size. Hypoechoic cyst of the left lobe of the liver, 3.9 x 2.9 cm in size. Reviewed, Interpreted and Dictated by Pacheco Arriaga MD Transcribed by Guera Garcia Authenticated and [facility]
--- NOTE | 2024-12-06 10:00 | US_ITS ---
FINAL REPORT TECHNIQUE: Multiple sonographic images of the kidneys were obtained in the longitudinal and transverse planes. CLINICAL HISTORY: cyst FINDINGS: The right kidney measures 9 cm in fwpo-pc-mriu length. There is no hydronephrosis, solid mass or stone. Cortical echogenicity and cortical thickness are within normal limits. There is a 6.2 cm right renal cyst. The left kidney measures 10 cm in pygm-qn-cpsb length. There is no hydronephrosis, mass or stone. Cortical echogenicity and cortical thickness are within normal limits. There is fatty infiltration of the liver. IMPRESSION: Right renal cyst, otherwise normal kidneys bilaterally. Reviewed, Interpreted and Dictated by Pacheco Arriaga MD Transcribed by Alexandria Nelson Authenticated and [facility]
== END 2024-12-06 23:59 | disposition home or self-care (01) ==
LOC: RAD 09:27
PROVIDERS: PCP Family Medicine; Visit Provider Family Medicine
DX: N28.1 Cyst of kidney, acquired (principal); K76.89 Other specified diseases of liver
CPT/HCPCS: 76705; 76770

== ENCOUNTER 2025-03-16 10:06 | Outpatient (CLI) | payer MEDICARE, SELFPAY ==
[2025-03-16 17:18] LABS: Hematocrit 42.4 % (37.0-47.0); Hemoglobin 13.7 g/dL (12.2-16.2); Immature Granulocytes % 0.3 %; Mean Corpuscular HGB Conc 32.3 g/dL (31.8-35.4); Mean Corpuscular Hemoglobin 30.7 pg (27.0-31.2); Mean Corpuscular Volume 95.1 fl (81-99); Nucleated Red Blood Cells % 0 %; Platelet Count 285 K/mm3 (142-424); Red Blood Count 4.46 M/mm3 (4.20-5.40); Red Cell Distribution Width-SD 40.5 fL; White Blood Count 3.6 K/mm3 (4.8-10.8)
[2025-03-16 18:07] LABS: Alanine Aminotransferase 15 U/L (12-78); Albumin Level 4.0 g/dl (3.5-5.0); Albumin/Globulin Ratio 1.5 (1.1-1.8); Alkaline Phosphatase 95 U/L (38-126); Anion Gap 11.3 mEq/L (5-15); Aspartate Amino Transferase 26 U/L (14-36); Bilirubin,Total 0.7 mg/dl (0.2-1.3); Blood Urea Nitrogen 12 mg/dl (7-17); Calcium 9.1 mg/dl (8.4-10.2); Carbon Dioxide 28 mmol/L (22.0-30.0); Chloride 99 mmol/L (98-107); Cholesterol 198 mg/dl (140-200); Creatinine,Serum 0.70 mg/dl (0.52-1.04); Estimated Glomerular Filt Rate 81 ml/min (>60); GFR (African American) 98 ML/MIN (>60); Globulin 2.7 g/dL (1.3-3.2); Glucose 59 mg/dl (74-100); HDL Cholesterol 79 mg/dl (40-60); Potassium 4.3 mmoL/L (3.5-5.1); Sodium 134 mmol/L (136-145); Total Protein,Serum 6.7 g/dl (6.3-8.2); Triglycerides 76 mg/dl (30-150)
[2025-03-16 18:18] LABS: Free T4 (Free Thyroxine) 1.49 ng/dl (0.78-2.19)
[2025-03-16 18:24] LABS: 25-OH Vitamin D, Total 40.9 ng/mL (30-100)
[2025-03-16 18:40] LABS: Thyroid Stimulating Hormone 1.90 uIU/mL (0.465-4.68)
[2025-03-16 18:50] LABS: Hepatitis C Ab Qual. W/ RFX NEGATIVE (Negative)
== END 2025-03-16 23:59 ==
LOC: LAB.DROPOF 03-18 00:12
PROVIDERS: PCP Nurse Practitioner; Visit Provider Nurse Practitioner
DX: E55.9 Vitamin D deficiency, unspecified (principal); Z11.59 Encounter for screening for other viral diseases; E78.5 Hyperlipidemia, unspecified; E03.9 Hypothyroidism, unspecified
CPT/HCPCS: 80053; 80061; 82306; 84439; 84443; 85025; 86803; 87389

== ENCOUNTER 2025-03-17 14:06 | Emergency (ER) | payer MEDICARE, SELFPAY ==
[2025-03-17 14:13] VITALS: BP 164/82; PULSE 91; RESP 15; TEMP 36.7; O2SAT 98; BMI 22.6
--- NOTE | 2025-03-17 14:15 | XR_ITS ---
FINAL REPORT CLINICAL HISTORY: Fall, wrist pain and swelling COMPARISON: None FINDINGS: LEFT WRIST Three views demonstrate a fracture of the distal radial metaphysis with articulation extension. The joint spaces appear normal. No soft tissue abnormality is seen. IMPRESSION: Acute fracture as above. Reviewed, Interpreted and Dictated by Byron Veloz MD Transcribed by Molly Tate Authenticated and [facility]
--- NOTE | 2025-03-17 14:36 | HMH.EDGENADL ---
Discharge Plan Disposition Patient Disposition: Home, Self-Care Condition: Good Prescriptions Prescriptions: No Action levothyroxine [Synthroid] 50 mcg tablet 50 mcg PO DAILY Patient Comments: TAKE 1 TABLET BY MOUTH EVERY DAY IN THE MORNING Metamucil [facility] Fiber 3.4 gram/5.8 gram powder 1.65 g PO DAILY magnesium oxide [Vaughn] 500 mg tablet 500 mg PO DAILY Centrum Silver 400-250 mcg tablet,chewable 1 tab PO DAILY citalopram 10 mg tablet See Rx Instructions .ROUTE .COMPLEX Qty: 90 2RF Dose Instruction: TAKE 1 TABLET ORALLY DAILY Rx Instructions: TAKE 1 TABLET ORALLY DAILY levothyroxine [Synthroid] 75 mcg tablet 75 mcg PO DIRECTED Patient Comments: TAKE 1 TABLET BY MOUTH EVERY MORNING FRIDAY THROUGH FRIDAY. DO NOT TAKE ANY ON SUNDAYS Referrals Follow up/Referrals: Nikos Norton DO [Staff Physician, Orthopedics] - See instructions Referral Note: Please call for appointment, please stay in splint until appointment, for your distal radius fracture on your left wrist. Jose C Guaman MD [Primary Care Provider, Family Practice] - See instructions Activity Restrictions/Add. Instructions Additional Instructions/Restrictions: Please return to the emergency department with any worsening signs or symptoms. Please remain in your splint until follow-up with orthopedic doctor. Please call orthopedic doctor for appointment. Please utilize ibuprofen Tylenol as needed for symptomatic relief. We will call you with any results that may be actionable when the full radiology report is available. No news is good news. Clinical Impressions Clinical Impression: Fracture of distal end of left radius Instructions Patient Instructions: DI for Wrist Fracture Print Language Print Language: Armenian Discharge ED Provider: Koffi Connor General Adult HPI General Chief complaint: Extremity Injury, Upper Stated complaint: AO-1200- Fall- Pain L wrist Time Seen by Provider: 03/17/25 14:08 Mode of Arrival: Ambulatory Source of Information: Patient Description of Symptoms (Recalled from ER Triage Doc. by RN): left wrist pain. tripped over the vacuum cord History of Present Illness HPI narrative: 79-year-old female presents the emergency department with a left hand/wrist FOOSH injury, patient endorses is pain and swelling in her left wrist/hand, patient states that she tripped over the vacuum cord , patient denies any LOC, denies any other upper or lower extremity injury, denies striking of the head, patient is on any anticoagulant therapy, denies any presyncopal or syncopal event prior to the episode, patient has no fever chills chest pain shortness of breath nausea vomiting constipation diarrhea no neck pain no back pain no numbness or tingling no radicular symptomatology. Patient is a non-smoker, denies any alcohol or drug use, other past medical history consistent with anxiety/depression, hypothyroidism, hyperlipidemia, osteoporosis, fibrocystic breast disease, hypertension. Initial triage vitals are unremarkable Please note that above description of symptoms, in this electronic medical record under categorization of recalled from ER triage doctor by RN are reflective of an initial nursing assessment, however, is not reflective of my full history and physical exam that was personally taken and clarified. Consequentially, this preceding description of symptoms, which may include the patient's categorized chief complaint in the EMR, do not reflect my personal clinical impression, and the ultimate description of history of present illness and patient stated complaints should be deferred to this section of the note. Unless stated otherwise or congruent with this section of the note, additional signs, symptoms, or incongruence should be interpreted as inaccurate with my clinical impression. Onset (ago): hour(s) Related Data Home Medications ?Medication ?Instructions ?Recorded ?Confirmed magnesium oxide (Vaughn) 500 mg PO DAILY Supplement 03/28/22 03/16/25 vehmogqnvcnv-mqnjtjv-wddir acid 1 tab PO DAILY Supplement 03/28/22 03/16/25 400 mcg-lutein 250 mcg chewable tablet (Centrum Silver) levothyroxine 50 mcg tablet 50 mcg PO DAILY thyroid 11/26/22 03/16/25 (Synthroid) levothyroxine 75 mcg tablet 75 mcg PO DIRECTED thyroid 02/11/23 03/16/25 (Synthroid) psyllium husk 3.4 gram/5.8 gram 1.65 g PO DAILY 01/25/25 03/16/25 oral powder (Metamucil [facility] Fiber) Previous Rx's ?Medication ?Instructions ?Recorded citalopram 10 mg tablet See Rx Instructions .Route 02/22/25 .COMPLEX #90 tabs Allergies Allergy/AdvReac Type Severity Reaction Status Date / Time amoxicillin Allergy Mild Rash Verified 02/08/25 10:55 ciprofloxacin Allergy Verified 02/08/25 10:55 metronidazole Allergy Verified 02/08/25 10:55 Sulfa (Sulfonamide Allergy Verified 02/08/25 10:55 Antibiotics) [facility] Disclaimer: The information contained in this section may have been updated after the patient was seen, as this information can be updated by other users. Medical History Rectal bleeding Hypertension She is resistant to starting BP medication. She will drop in for BP checks. Need for influenza vaccination Dysuria Discoloration of skin of foot Abnormal breathing Sleep disturbance Finger pain, right Situational depression Grief counseling Gastric wall thickening Renal cyst Hepatic cyst Advance directive on file Fibrocystic breast disease Vitamin D deficiency Cataracts, bilateral Colon polyp Diverticulosis Osteoporosis Postmenopausal Hyperlipidemia Acquired hypothyroidism Hypothyroid Surgical History History of appendectomy History of umbilical hernia repair S/P laparoscopic appendectomy History of vaginal hysterectomy (~2008) History of hernia surgery History of tonsillectomy Family History Other Cancer Hypertension Social History (Updated 03/16/25 @ 08:43 by Janelle Rico MA) Smoking Status: Never smoker alcohol intake: never substance use type: denies use current occupational status: retired Travel in the last 8 weeks?: None caffeine: Yes Other Medical History Have you received the Flu Vaccine for this season: No Have you received the Pneumonia Vaccine: Yes ROS Obtained: Yes All systems reviewed & no additional complaints except as documented Physical Exam General General appearance: alert and in no apparent distress Head Head exam: atraumatic and normocephalic Eye Eye exam: Present PERRL and EOMI ENT ENT exam: Present mucous membranes moist Neck Neck exam: Present normal inspection Chest Chest inspection: Present normal inspection and symmetric chest wall rise Respiratory Respiratory exam: Present normal lung sounds bilaterally; Absent respiratory distress Cardiovascular Cardiovascular exam: Present regular rate and normal rhythm Abdominal Exam Abdominal exam: Present soft; Absent tenderness Extremities Exam Extremities exam: Present tenderness, joint swelling and other (Mild soft tissue swelling around the medial aspect of the patient's wrist, no anatomical snuffbox tenderness, otherwise neurovasc intact, good finger opposition, pain palpation to that area, no obvious acute deformity, no open fracture otherwise neurovasc intact.); Absent normal inspection or full ROM Neurological Exam Neurological exam: Present alert and oriented X3 Psychiatric Psychiatric exam: Present normal affect Skin Skin exam: Present warm and dry Medical Decision Making Medical Records Medical records reviewed: Yes I reviewed the patient's medical records. Screening: Per USPSTF and CDC recommendations, given the prevalence of disease in our region, it is our hospital?s policy to screen for HIV and viral Hepatitis for all patients aged 18 and over and those with ongoing risk factors. Erick Inquiry Pt receiving controlled substance: No Erick was queried for this patient: No Vital Signs: 03/17/25 14:13 03/17/25 14:45 03/17/25 15:00 Temperature 98.1 F Temperature Source Oral Pulse Rate 62 60 Pulse Rate [Right] 91 H Respiratory Rate 15 Blood Pressure 156/80 H 152/81 H Blood Pressure [Right Arm] 164/82 H Blood Pressure Mean Blood Pressure Mean [Right Arm] 109 02 Sat by Pulse Oximetry 98 97 98 Oxygen Delivery Method Room Air 03/17/25 15:16 03/17/25 15:30 03/17/25 15:47 Temperature 98.4 F Temperature Source Pulse Rate 90 Pulse Rate [Right] Respiratory Rate 15 Blood Pressure 155/87 H 154/87 H 154/78 H Blood Pressure [Right Arm] Blood Pressure Mean 105 104 Blood Pressure Mean [Right Arm] 02 Sat by Pulse Oximetry Oxygen Delivery Method Orders (Tests/Meds): ORDERS Category Date Time Status XR forearm LT 2V Stat Exams 03/17/25 14:39 Completed XR hand LT min 3V Stat Exams 03/17/25 14:39 Completed XR wrist LT min 3V Stat Exams 03/17/25 14:15 Taken Medical Decision Narrative: 79-year-old female presents the emergency department with a FOOSH injury to her left hand/wrist, differential diagnose include but not limited to, sprain/strain, hand sprain/strain, hand fracture, wrist fracture among others. I discussed this patient's case with the attending physician Dr. Connor Will obtain x-rays of the left hand left forearm and left wrist for further evaluation/characterization, patient notifies me that she took Advil , prior to arrival, has no pain currently, utilized ice as well prior to arrival. I along with attending physician reviewed the patient's hand x-ray wrist x-ray forearm x-rays, patient has a nondisplaced radius fracture, radiology report is not yet available for my direct interrogation, I discussed these results/recommendations with the patient and family the bedside patient and family are in agreement with current discharge plan/treatment plan, would not like to wait for full radiology report. Shared decision making was utilized I think this is appropriate. Will place the patient in a sugar-tong splint and give the patient orthopedic follow-up. Sugar-tong splint performed by self and technicians, neurovascular intact pre and post procedure/splinting patient tolerated well. Patient was given strict ED return precautions, we will call the patient with any actionable results of her x-ray, patient follow-up with orthopedic provider in the upcoming days/weeks, offered p.o. analgesia to the patient, patient declined at this time would like to pursue analgesia with OTC anti-inflammatory medications I think this appropriate. Patient family voiced understanding and agreement with current treatment plan/discharge plan. I reviewed the patient's left hand x-ray along the corresponding radiologic report, no acute osseous abnormality of the left hand distal left radius fracture. I reviewed the patient's left forearm x-ray along with corresponding radiologic report, nondisplaced fracture distal left radius. I discussed this patient's case with the on-call orthopedic physician at 3:42 PM he saw the patient's x-rays. He is in agreement with the current treatment plan/discharge plan with sugar-tong splint and orthopedic follow-up. Procedures Orthopedic Splinting/Casting Injury #1: Side: left Upper Extremity Injury Location: forearm and wrist Upper Extremity Immobilizer: sugar tong splint Post Cast/Splinting Neuro Status: intact and no change Post Cast/Splinting Vasc Status: intact and no change Critical Care Critical Care Time Critical Care Time: No
--- NOTE | 2025-03-17 14:39 | XR_ITS ---
FINAL REPORT CLINICAL HISTORY: FOOSH injury FINDINGS: AP and lateral views of the left forearm are obtained. There is no prior exam for comparison. There is a nondisplaced fracture of the distal left radius extending into the left radiocarpal joint. The more proximal portions of the radius and ulna are intact. The soft tissues appear normal. There is no joint effusion of the elbow. IMPRESSION: Nondisplaced fracture distal left radius. Reviewed, Interpreted and Dictated by Ruth Quevedo MD Transcribed by Melissa Escobar Authenticated and [facility]
--- NOTE | 2025-03-17 14:39 | XR_ITS ---
FINAL REPORT CLINICAL HISTORY: FOOSH injury FINDINGS: AP, oblique, and lateral views of the left hand were obtained. There is no prior exam for comparison. There is no acute fracture of the left hand. There is a fracture of the distal left radius. No significant displacement. Multi joint degenerative disease is most pronounced at the 1st carpometacarpal joint. There is dorsal soft tissue edema at the wrist. Remaining soft tissues of the hand are without acute abnormality. IMPRESSION: No acute osseous abnormality of the left hand. Distal left radius fracture. Reviewed, Interpreted and Dictated by Ruth Quevedo MD Transcribed by Melissa Escobar Authenticated and [facility]
[2025-03-17 14:45] VITALS: BP 156/80; PULSE 62; O2SAT 97
[2025-03-17 15:00] VITALS: BP 152/81; PULSE 60; O2SAT 98
[2025-03-17 15:16] VITALS: BP 155/87
[2025-03-17 15:30] VITALS: BP 154/87
[2025-03-17 15:47] VITALS: BP 154/78; PULSE 90; RESP 15; TEMP 36.9; O2SAT 97
== END 2025-03-17 15:48 | disposition home or self-care (01) ==
PROVIDERS: Emergency Provider Emergency Medicine; PCP Family Medicine
DX: S52.502A Unspecified fracture of the lower end of left radius, initial encounter for closed fracture (principal); W01.10XA Fall on same level from slipping, tripping and stumbling with subsequent striking against unspecified object, initial encounter
CPT/HCPCS: 29125; 73090; 73110; 73130; 99284

== ENCOUNTER 2025-04-06 08:56 | Outpatient (CLI) | payer MEDICARE, SELFPAY ==
--- NOTE | 2025-04-06 09:00 | XR_ITS ---
FINAL REPORT CLINICAL HISTORY: postmenopausal, osteoporosis COMPARISON: 12/17/2022 FINDINGS: Using L1-4, the bone mineral density of the spine is 0.784 g/cm2, corresponding to T-score of -2.4, consistent with osteopenia. Previously was 0.773 with a T-score of -2.5. Using the left hip, the bone mineral density of the femoral neck is 0.527 g/cm2, corresponding to a T-score of -2.9, consistent with osteoporosis. Previously was 0.488 with a T-score of -3.2. Using the right hip, the bone mineral density of the femoral neck is 0.524 g/cm2, corresponding to a T-score of -2.9, consistent with osteoporosis. Previously was 0.556 with a T-score of -2.6. FRAX not reported because some T-score at or below -2.5. NOTE: T-score: Standard deviation compared with peak bone mass of young adult mean. *Following the recommendations of the International Society of Bone densitometry, classification of hip BMD is based on the lower of two T-scores; total hip or femoral neck. IMPRESSION: Diminished bone mineral density consistent with osteoporosis. Reviewed, Interpreted and Dictated by Pacheco Arriaga MD Transcribed by Melissa Escobar Authenticated and [facility]
--- OUTSIDE RECORDS SUMMARY | 2025-04-06 09:32 | XMS_ITS | Clinical Summary ---
Author Organization [facility]/Mariah Wall Address [address] [place] [address] Phone Care Team Providers Care Internal Medicine Physician Assistant Name Role Phone Karma Shi APRN Primary Care Provider [phone] Allergies No known active allergies Medications levothyroxine [...] mouth daily. Active L gasseri/B bifidum/B longum ([employer] [facility]) Take by mouth. Active [...] 04/04/2022 9:10 AM EDT Plan of Treatment Upcoming Encounters Date Type Department Care Team (Late st Contact Info) Description 04/14/2025 10:30 AM EST Appointment [facility] [address] [place] [address] Karma Shi, FARM FIELD MANAGER [address] [facility] [address] [place] [address] Health Maintenance Due Date Last Done Comments Wellness Exam Medicare 10/05/1948 Hepatitis C Screening 10/05/1965 Pneumococcal Vaccine 50+ (1 of 1 - PCV) 10/05/1997 Bone Density Screening 10/05/2012 RSV or 60+ (1 - 1-dose 75+ series) 10/05/2022 COVID-19 Vaccine ( - season) 2025 01/14/2022, 04/02/2021, 08/08/2020, Additional history exists Influenza Vaccine (#1) 2025 , 02/12/2021, 02/28/2020, Additional history exists DTaP/TDaP/Td (2 - Td or Tdap) 05/05/2027 05/05/2017 Zoster Completed 05/14/2018, 03/06/2018 Hepatitis B Vaccine Aged Out No longe r eligible based on patient's age to complete this topic Meningococcal B Vaccine Aged Out No l onger eligible based on patient's age to complete this topic Insurance [employer] MEDICARE PPO MR Care Teams Internal Medicine Physician Assistant Relationship Specialty Start Date End Date Karma Shi APRN [address] [facility] [address] [place] [address] PCP - General Nurse Practitioner 03/29/16
== END 2025-04-06 23:59 | disposition home or self-care (01) ==
LOC: RAD 08:57
PROVIDERS: PCP Family Medicine; Visit Provider Nurse Practitioner
DX: M81.0 Age-related osteoporosis without current pathological fracture (principal); Z78.0 Asymptomatic menopausal state
CPT/HCPCS: 77080

== ENCOUNTER 2025-04-11 10:04 | Outpatient (CLI) | payer MEDICARE, SELFPAY ==
--- NOTE | 2025-04-11 10:06 | XR_ITS ---
FINAL REPORT CLINICAL HISTORY: left wrist fx f/u COMPARISON: 03/17/2025 FINDINGS: AP, oblique, and lateral views of the left wrist were obtained. There has been interval healing of the previously seen distal radial fracture. No new osseous abnormality identified. Osteopenia and degenerative joint disease is noted. The soft tissues are normal. IMPRESSION: Interval healing distal radial fracture. Reviewed, Interpreted and Dictated by Ruth Quevedo MD Transcribed by Melissa Escobar Authenticated and [facility]
--- OUTSIDE RECORDS SUMMARY | 2025-04-11 10:16 | XMS_ITS | Clinical Summary ---
Author Organization [facility] Address [address] [place] [address] Phone Care Team Providers Care Welder/Fabricator Name Role Phone Karma Shi APRN Primary Care Provider [phone] Allergies No known active allergies Medications levothyroxine [...] mouth daily. Active L gasseri/B bifidum/B longum ([employer] [facility]) Take by mouth. Active [...] patient's age to complete this topic Insurance [employer] MEDICARE PPO MR [employer] MED[employer]ARE PPO MR Care Teams Welder/Fabricator Relationship Specialty Start Date End Date Karma Shi APRN [address] [facility] [address] [place] [address] PCP - General Nurse Practitioner 03/29/16
--- OUTSIDE RECORDS SUMMARY | 2025-04-11 10:17 | XMS_ITS | Data Portability ---
Author Organization [facility]IDE [facility] Address [address] [facility] [address] [place] [address] Care Team Providers Care Suture Gauger Name Role Phone CASSY ANGLIN Primary Care Provider [phone] Assessment Encounter Date Assessment Date Assessment LastModified [...] Lab TSH, serum or plasma 2024 026 [facility], [address] [place] [address], [phone], 11/25/2024 08:32:35 T4, free, serum 2024 026 [facility], [address] [place] [address], [phone], 11/25/2024 08:32:35 T3, free, serum or plasma 2024 026 [facility], [address] [place] [address], [phone], 11/25/2024 08:32:35 T4, free, serum 2023 024 [facility], [address] [place] [address], [phone], 11/14/2023 10:35:10 TSH, serum or plasma 2023 024 [facility], [address] [place] [address], [phone], 11/14/2023 10:35:12 T3, free, serum or plasma 2023 024 [facility], [address] [place] [address], [phone], 11/14/2023 11:13:33 TSH, serum or plasma 2022 023 [email or web address] 1 [facility], [address] [place] [address], [phone], 12/27/2022 08:53:34 T4, free, serum 2022 023 [email or web address] 1 [facility], [address] [place] [address], [phone], 12/27/2022 08:53:35 Referral None recorded. Procedures None recorded. Surgeries None recorded. Imaging None recorded. Medication Orders Synthroid 75 mcg tablet 2022 023 50 [facility]acy #[id number], [address] [place] [address], [id number], 01/06/2023 14:35:38 Synthroid 75 mcg tablet 2022 023 [facility] #[id number], [address] [place] [address], [phone], 11/12/2022 14:33:14 Synthroid 75 mcg tablet 2021 022 [facility] #[id number], [address] [place] [address], [id number], 11/12/2022 14:33:14 Patient TargetsNo targets recorded. Patient InstructionsNo instructions recorded. Reason for Referral None Reported. Results Created Date Observation Date Name Description Value Unit Range Abnormal Flag Note LastModifiedBy Organization Detail LastModifiedTime 01/10/20 22 01/09/2022 TSH TSH 1.540 uIU/m L 0.270- 4.200 normal Not Available [facility] [address] [place] [address], [phone], 01/09/2022 09:34:21 01/10/20 22 01/09/2022 T4,FR EE T4,free 1.47 NG/dL 0.93-1 .70 normal Not Available [facility] [address] [place] [address], [phone], 01/09/2022 09:34:23 09/24/19 23 09/23/2022 TSH TSH 5.640 uIU/m L 0.270- 4.200 high Not Available [facility] [address] [place] [address], [phone], 09/23/2022 09:35:07 09/24/19 23 09/23/2022 T4,FR EE T4,free 1.42 NG/dL 0.93-1 .70 normal Not Available [facility] [address] [place] [address], [phone], 09/23/2022 09:35:08 11/14/19 24 11/14/2023 T4,FR EE T4,free 1.33 NG/dL 0.93-1 .70 normal Not Available [facility] [address] [place] [address], [phone], 11/14/2023 10:35:10 11/14/19 24 11/14/2023 TSH TSH 3.000 u[IU] /mL 0.270- 4.200 normal Not Available [facility] [address] [place] [address], [phone], 11/14/2023 10:35:12 11/14/19 24 11/14/2023 T3 FREE T3 free 2.39 pg/mL 2.00-4 .40 normal Not Available [facility] [address] [place] [address], [phone], 11/14/2023 11:13:33 11/26/19 25 11/25/2024 T3 FREE T3 free 2.55 pg/mL 2.00-4 .40 normal Not Available [facility] [address] [place] [address], [phone], 11/25/2024 09:28:33 11/26/19 25 11/25/2024 T4,FR EE T4,free 1.31 NG/dL 0.93-1 .70 normal Not Available [facility] [address] [place] [address], [address], 11/25/2024 09:28:34 11/26/19 25 11/25/2024 TSH TSH 1.910 u[IU] /mL 0.270- 4.200 normal Not Available [facility] [address] [place] [address], [phone], 11/25/2024 09:28:35 Result Notes None recorded. Problems Name Problem SNOMED Code Status Onset Date Resolution Date Notes Provider Name and Address Organization Details Recorded Time Postoperat jacob hypothyroi dism 03036680 Active 2015 From Automated Load;Provi shefali: Akhtar, Shelbi;St atus: Active Not Available Count includes the [facility] 6 02:18:08 Problem Notes None recorded. Procedures Surgical History Date Name Laterality Status Provider Name and Address Organization Details Recorded Time Abdominal Surgery completed [facility] 12/31/2016 08:30:57 Ears/Nose/Throa t Surgery completed [facility] 12/31/2016 08:31:10 Hysterectomy/re vise vagina completed [facility] 12/31/2016 08:31:27 [employer] Surgery completed [facility] 12/31/2016 08:31:38 Imaging Results None recorded. Procedure [...] 1 TABLET BY MOUTH EVERY OTHER MORNING E89.0 2024 active 11/25/24- Not Available Not Available Not Available Synthroid [...] mg capsule,de layed release Daily active Frequency: daily;Medi cation Descriptio n: omega-3 polyunsatu rated fatty acids; Dosage:1; Route:oral ; refills:0 Not Available Not Available Not Available Spotsi 1.5 billion cell capsule Take by oral route. active Not Available Not Available No t Available Vitals Date Recorded Body height Body mass index (BMI) Body weight Heart rate Systolic And Diastolic Provider Name and Address Organization Details Last Updated DateTime 09/23/2022 158.75 cm 19.6 kg/m2 18077.57 g 58 /min 125/80 mm[Hg] [facility] 09/23/2022 08:46:19 Date Recorded Body height Body mass index (BMI) Body weight Heart rate Systolic And Diastolic Provider Name and Address Organization Details Last Updated DateTime 11/08/2022 158.75 cm 19.6 kg/m2 81735.57 g 60 /min 125/75 mm[Hg] [facility] 11/08/2022 08:47:35 Date Recorded Body weight Body mass index (BMI) Body height Heart rate Systolic And Diastolic Provider Name and Address Organization Details Last Updated DateTime 11/14/2023 37039.9 g 21.6 kg/m2 157.48 cm 70 /min 122/74 mm[Hg] [facility] 11/14/2023 10:00:48 Date Recorded Body weight Body mass index (BMI) Body height Systolic And Diastolic Provider Name and Address Organization Details Last Updated DateTime 11/25/2024 69119.08 g 21.9 kg/m2 157.48 cm 122/78 mm[Hg] [facility] 11/25/2024 08:19:16 Date Recorded Body height Body mass index (BMI) Body weight Heart rate Systolic And Diastolic Provider Name and Address Organization Details Last Updated DateTime 01/09/2022 158.75 cm 21.4 kg/m2 73637.49 g 61 /min 128/84 mm[Hg] Clari Akers [facility] 01/09/2022 08:44:34 Social History Question Answer Notes LastModified by DFMSim Details LastModified Time Tobacco Smoking Status [facility] 08:30:34 How Much Tobacco Do You [...] 50 mcg/0.25mL dose 07/12/2020 completed SHELBI ORTA, [employer] SAL[employer] REPRESENTATIVE [address] [place], [place], [address] [place] [address], [facility] 05/10/2021 08:56:58 COVID-19, mRNA, LNP-S, PF, 100 mcg/0.5mL dose or 50 mcg/0.25mL dose 08/08/2020 completed SHELBI ORTA, [employer] SAL[employer] REPRESENTATIVE [address] [place], [place], [address] [place] [address], [facility] 05/10/2021 08:57:11 COVID-19, mRNA, LNP-S, PF, 100 mcg/0.5mL dose or 50 mcg/0.25mL dose 04/02/2021 completed SHELBI ORTA, [employer] SAL[employer] REPRESENTATIVE [address] [place], [place], [address] [place] [address], [facility] 05/10/2021 08:57:18 Influenza, high-dose, trivalent, PF 02/12/2021 completed SHELBI ORTA, [employer] SAL[employer] REPRESENTATIVE [address] [place], [place], [address] [place] [address], [facility] 05/10/2021 08:58:01 Past Encounters Encounter ID Performer Location Encounter Start Date Encounter Closed Date Diagnosis/Indication Diagnosis SNOMED-CT Code Diagnosis ICD10 Code Diagnosis IMO Codes Diagnosis Note [id number] SHELBI ORTA, [employer] SALES REPRESENTATIVE [facility] [address] 12/31/2016 08:08:43 12/31/2016 09:19:07 History of Graves' disease 7269636184 01616 Z86.39 with hyperthyro idism resolved s/p DELATORRE ablation (1982). Postablati ve hypothyroidism 615757564 E89.0 s/p DELATORRE ablation (1982) with evolvement [...] need a 30 day RX sent to [facility] in [place], [place] after review of labs. Addendum: TSH 1.04, FT4=1.55. Postmenopa usal osteoporosis 153753085 M81.0 She requested an opinion about treatment [...] of the lumbar spine or total hip). [id number] SHELBI ORTA APRN [facility] [address] [place] [address] 12/31/2017 07:41:17 12/31/2017 15:44:37 Postablative hypothyroidism 655631577 E89.0 History of Grave's disease with no history of GED, s/p DELATORRE ablation (1982) with evolvement to hypothyroi dism. Continue Synthroid 75 mcg daily pending labs. TSH and FT4 today.She will need a 30 day RX sent to [facility] in [place], [place] after review of labs.Follo w up in one year with labs as noted below.12/31: TSH 0.812, FT4-1.54. Thyroid level is normal. RX sent to continue Synthroid 75 mcg daily. [id number] [place] [address] [place], [place] [address] 12/31/2018 07:41:21 12/31/2018 09:30:50 Postablative hypothyroidism 003372644 E89.0 hypothyroi dism s/p DELATORRE ablation (1982) for Grave's disease with no history of GED.Contin ue Synthroid 75 mcg daily pending labs. TSH and FT4 today.She will need a 90 day RX sent to [facility] in [place] after review of labs.Follo w up in one year with labs as noted below. ADDENDUM: 12/31/18 - TSH 2.07, FT4=1.47. [id number] [place] [address] [place], [place] [address] 01/11/2020 08:37:49 01/11/2020 09:44:16 Postablative hypothyroidism 989630567 E89.0 History of Grave's disease with no GED, evolved to hypothyroi dism s/p DELATORRE ablation (1982).Con tinue Synthroid 75 mcg daily pending labs.She will need a 90 day RX sent to [facility] in [place] after review of labs.Follo w up in one year with labs as noted below.ADDE NDUM: TSH 0.342, FT4=1.61 (normal). [id number] SHELBI ORTA APRN [facility] [place] [address] 08/15/2020 08:08:48 08/15/2020 10:27:01 Postablative hypothyroidism 696362935 E89.0 Hypothyroi dism s/p DELATORRE ablation for Grave's disease (1982) with no history of GED. Continue brand Synthroid 50 mcg daily pending labs. Will check TSH and FT4 today. She will need a 90 day RX sent to [facility] in [place] after review of labs. Recommend eye [...] patient by phone -letter and RX sent. [id number] SHELBI ORTA APRN [facility] [address] [place] [address] 01/11/2021 08:46:29 01/11/2021 16:23:04 Postablative hypothyroidism 735149772 E89.0 History of Grave's disease s/p DELATORRE [...] 4 months with labs as noted below. [id number] SHELBI ORTA APRN [facility] [address] [place] [address] 05/10/2021 08:17:12 05/10/2021 09:24:44 Postablative hypothyroidism 933711876 E89.0 History of Grave's disease s/p DELATORRE [...] Will continue same dose as noted above. [id number] [place] [address] [place] [address] 01/09/2022 08:09:37 01/09/2022 09:09:06 Postablative hypothyroidism 812087631 E89.0 [id number] MOODY PAULINO MD [facility] [address] [place] [address] 09/23/2022 08:15:33 09/23/2022 09:47:36 Postablative hypothyroidism 295758561 E89.0 Appears clinically euthyroid We had a [...] with the above mentioned plan of care. [id number] MOODY PAULINO MD [facility] [address] [place] [address] 1 11/08/2022 08:27:36 11/08/2022 10:30:54 Postablative hypothyroidism 657238529 E89.0 Clinically she still feels tired with anxietySti ll grieving her passingUnr emarkable thyroid examTSH of 0.2 and elevated total T4 of 11.3 on 11/01/2022I initially recommende d to decrease levothyrox ine to 50 mcg every a.m. but she reported not feeling well with that so rob cruzy she will take levothyrox ine 75 mg 5 days a week Recheck TSH and free T4 at an outside facility with results to be faxed to our office 6 months follow-up Patient verbalized understand ing and agreed with the above mentioned plan of care. [id number] MOODY PAULINO MD [facility] [address] [place] [address] 1 11/14/2023 09:28:28 11/14/2023 11:43:19 Postablative hypothyroidism 158219585 E89.0 Clinically she denies any symptoms of [...] with the above mentioned plan of care. [id number] MOODY PAULINO MD [facility] [address] [place], [place] [address] 11/25/2024 08:03:21 11/25/2024 08:48:31 Postablative hypothyroidism 682512616 E89.0 Clinically she denies any symptoms of [...] [employer] (MEDICARE REPLACEMENT/A DVANTAGE - PPO) Katy Malone Christinavita [id number] Katy De Los Santos Notes Date Note Type Note Provider Name and Address Organization Details Recorded Time 01/09/2022 text/html ROS as noted in the HPI This is a 76-year-old female with a [...] vision, dysphagia, palpitations, tremors or diarrhea. CHECO MAN DO [address] [place], [address], [facility] 01/09/2022 11:25:43 09/23/2022 text/html ROS as noted in the HPI 76-year-old female with a past medical history [...] year and she is still grieving. MOODY PAULINO MD [address] [place] [address], [phone], [facility] 09/23/2022 09:41:21 11/08/2022 text/html ROS as noted in the HPI 77-year-old female with a past medical history significant [...] and elevated total T4 MOODY PAULINO MD [address] [place] [address], [phone], [facility] 11/08/2022 09:14:32 11/14/2023 text/html ROS as noted in the [facility] 78-year-old female with a past medical history significant [...] her anxiolytic medicine lorazepam MOODY PAULINO MD [address] [place] [address], [phone], [facility] 11/14/2023 11:34:39 11/25/2024 text/html ROS as noted in the HPI 79-year-old female with a past medical history significant for Graves' disease s/p DELATORRE, RLS and osteoporosis who presented to the clinic for 6-week follow-up postoperative hypothyroid Last endocrine office visit on 11/14/2023Sin her last visit she reports no acute [...] recent unintentional weight loss MOODY PAULINO MD [address] [place], [address], [facility] 11/25/2024 08:32:48 OBGyn Episode No OBEpisode recorded.
== END 2025-04-11 23:59 | disposition home or self-care (01) ==
LOC: RAD 10:06
PROVIDERS: PCP Family Medicine; Visit Provider Physician Assistant Surgical
DX: S52.502D Unspecified fracture of the lower end of left radius, subsequent encounter for closed fracture with routine healing (principal)
CPT/HCPCS: 73110

== ENCOUNTER 2025-05-02 09:07 | Outpatient (CLI) | payer MEDICARE, SELFPAY ==
--- NOTE | 2025-05-02 09:07 | XR_ITS ---
FINAL REPORT CLINICAL HISTORY: f/u distal radius fx COMPARISON: 04/11/2025 FINDINGS: AP, oblique, and lateral views of the left wrist were obtained. There has been interval healing of the previously seen distal radius fracture. No acute osseous abnormality identified. There is degenerative joint disease which appears unchanged. There continues to be mild soft tissue edema. IMPRESSION: Interval healing distal radius fracture with continued mild soft tissue edema. Reviewed, Interpreted and Dictated by Ruth Quevedo MD Transcribed by Melissa Escobar Authenticated and [facility]
--- OUTSIDE RECORDS SUMMARY | 2025-05-02 09:09 | XMS_ITS | Clinical Summary ---
Author Organization [facility]/Mariah Sheffield Address [address] [place] [address] Phone Care Team Providers Care Category Director Name Role Phone Karma Shi APRN Primary Care Provider Allergies No known active allergies Medications levothyroxine [...] mouth daily. Active L gasseri/B bifidum/B longum ([employer] [facility]) Take by mouth. Active [...] MR [employer] MEDICARE PPO MR Care Teams Category Director Relationship Specialty Start Date End Date Karma Shi APRN [address] [facility] [address] [place] [address] PCP - General Nurse Practitioner 03/29/16
--- OUTSIDE RECORDS SUMMARY | 2025-05-02 09:09 | XMS_ITS | Data Portability ---
Author Organization [facility] [place] [facility] Address [address] [facility] [address] [place] [address] Care Team Providers Care Cook Short Order Name Role Phone CASSY ANGLIN Primary Care Provider [phone] Assessment Encounter Date Assessment Date Assessment LastModified [...] Lab TSH, serum or plasma 2024 026 [facility], [address] [place] [address], [phone], 11/25/2024 08:32:35 T4, free, serum 2024 026 [facility], [address] [place] [address], [phone], 11/25/2024 08:32:35 T3, free, serum or plasma 2024 026 [facility], [address] [place] [address], [phone], 11/25/2024 08:32:35 T4, free, serum 2023 024 [facility], [address] [place] [address], [phone], 11/14/2023 10:35:10 TSH, serum or plasma 2023 024 [facility], [address] [place] [address], [phone], 11/14/2023 10:35:12 T3, free, serum or plasma 2023 024 [facility], [address] [place] [address], [phone], 11/14/2023 11:13:33 TSH, serum or plasma 2022 023 [email or web address] 1 [facility], [address] [place] [address], [phone], 12/27/2022 08:53:34 T4, free, serum 2022 023 [email or web address] 1 [facility], [address] [place] [address], [phone], 12/27/2022 08:53:35 Referral None recorded. Procedures None recorded. Surgeries None recorded. Imaging None recorded. Medication Orders Synthroid 75 mcg tablet 2022 023 [email or web address] 50 [facility]armacy #[id number], [address] [place] [address], [phone], 01/06/2023 14:35:38 Synthroid 75 mcg tablet 2022 023 [facility]armacy #[id number], [address] [place] [address], [id number], 11/12/2022 14:33:14 Synthroid 75 mcg tablet 2021 022 [facility] #[id number], [address] [place] [address], [id number], 11/12/2022 14:33:14 Patient TargetsNo targets recorded. Patient InstructionsNo instructions recorded. Reason for Referral None Reported. Results Created Date Observation Date Name Description Value Unit Range Abnormal Flag Note LastModifiedBy Organization Detail LastModifiedTime 01/10/20 22 01/09/2022 TSH TSH 1.540 uIU/m L 0.270- 4.200 normal Not Available [facility] [address] [place] [address], [phone], 01/09/2022 09:34:21 01/10/20 22 01/09/2022 T4,FR EE T4,free 1.47 NG/dL 0.93-1 .70 normal Not Available [facility] [address] [place] [address], [phone], 01/09/2022 09:34:23 09/24/19 23 09/23/2022 TSH TSH 5.640 uIU/m L 0.270- 4.200 high Not Available [facility] [address] [place] [address], [phone], 09/23/2022 09:35:07 09/24/19 23 09/23/2022 T4,FR EE T4,free 1.42 NG/dL 0.93-1 .70 normal Not Available [facility] [address] [place] [address], [address], 09/23/2022 09:35:08 11/14/19 24 11/14/2023 T4,FR EE T4,free 1.33 NG/dL 0.93-1 .70 normal Not Available [facility] [address] [place] [address], [phone], 11/14/2023 10:35:10 11/14/19 24 11/14/2023 TSH TSH 3.000 u[IU] /mL 0.270- 4.200 normal Not Available [facility] [address] [place] [address], [phone], 11/14/2023 10:35:12 11/14/19 24 11/14/2023 T3 FREE T3 free 2.39 pg/mL 2.00-4 .40 normal Not Available [facility] [address] [place] [address], [address], 11/14/2023 11:13:33 11/26/19 25 11/25/2024 T3 FREE T3 free 2.55 pg/mL 2.00-4 .40 normal Not Available [facility] [address] [place] [address], [phone], 11/25/2024 09:28:33 11/26/19 25 11/25/2024 T4,FR EE T4,free 1.31 NG/dL 0.93-1 .70 normal Not Available [facility] [address] [place] [address], [address], 11/25/2024 09:28:34 11/26/19 25 11/25/2024 TSH TSH 1.910 u[IU] /mL 0.270- 4.200 normal Not Available [facility] [address] [place] [address], [phone], 11/25/2024 09:28:35 Result Notes None recorded. Problems Name Problem SNOMED Code Status Onset Date Resolution Date Notes Provider Name and Address Organization Details Recorded Time Postoperat jacob hypothyroi dism 89013065 Active 2015 From Automated [employer];Provi shefali: Akhtar, Shelbi;St atus: Active Not Available [facility] 6 02:18:08 Problem Notes None recorded. 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 [...] refills:0 Not Available Not Available Not Available [employer] 1.5 billion cell capsule Take by oral route. active Not Available Not Available No t Available Vitals Date Recorded Body height Body mass index (BMI) Body weight Heart rate Systolic And Diastolic Provider Name and Address Organization Details Last Updated DateTime 09/23/2022 158.75 cm 19.6 kg/m2 39405.57 g 58 /min 125/80 mm[Hg] [facility] 09/23/2022 08:46:19 Date Recorded Body height Body mass index (BMI) Body weight Heart rate Systolic And Diastolic Provider Name and Address Organization Details Last Updated DateTime 11/08/2022 158.75 cm 19.6 kg/m2 96778.57 g 60 /min 125/75 mm[Hg] [facility] 11/08/2022 08:47:35 Date Recorded Body weight Body mass index (BMI) Body height Heart rate Systolic And Diastolic Provider Name and Address Organization Details Last Updated DateTime 11/14/2023 61851.9 g 21.6 kg/m2 157.48 cm 70 /min 122/74 mm[Hg] [facility] 11/14/2023 10:00:48 Date Recorded Body weight Body mass index (BMI) Body height Systolic And Diastolic Provider Name and Address Organization Details Last Updated DateTime 11/25/2024 15782.08 g 21.9 kg/m2 157.48 cm 122/78 mm[Hg] [facility] 11/25/2024 08:19:16 Date Recorded Body height Body mass index (BMI) Body weight Heart rate Systolic And Diastolic Provider Name and Address Organization Details Last Updated DateTime 01/09/2022 158.75 cm 21.4 kg/m2 43793.49 g 61 /min 128/84 mm[Hg] Clari Akers [facility] 01/09/2022 08:44:34 Social History Question Answer Notes LastModified by [employer] Details LastModified Time Tobacco Smoking Status Never Smoker [facility] 12/31/2016 08:30:34 How Much Tobacco Do You [...] 50 mcg/0.25mL dose 07/12/2020 completed SHELBI ORTA, DEPUTY DIRECTOR OF NURSING [address] [place], [place], [address] [place] [address], [facility] 05/10/2021 08:56:58 COVID-19, mRNA, LNP-S, PF, 100 mcg/0.5mL dose or 50 mcg/0.25mL dose 08/08/2020 completed SHELBI ORTA, DEPUTY DIRECTOR OF NURSING [address] [place], [place], [address] [place] [address], [facility] 05/10/2021 08:57:11 COVID-19, mRNA, LNP-S, PF, 100 mcg/0.5mL dose or 50 mcg/0.25mL dose 04/02/2021 completed SHELBI ORTA, DEPUTY DIRECTOR OF NURSING [address] [place], [address] [place] [address], [facility] 05/10/2021 08:57:18 Influenza, high-dose, trivalent, PF 02/12/2021 completed SHELBI ORTA, DEPUTY DIRECTOR OF NURSING [address] [place], [place], [address] [place] [address], [facility] 05/10/2021 08:58:01 Past Encounters Encounter ID Performer Location Encounter Start Date Encounter Closed Date Diagnosis/Indication Diagnosis SNOMED-CT Code Diagnosis ICD10 Code Diagnosis IMO Codes Diagnosis Note [id number] SHELBI ORTA, DEPUTY DIRECTOR OF NURSING [facility] [address] 1 12/31/2016 08:08:43 12/31/2016 09:19:07 History of Graves' disease 0866144245 75419 Z86.39 with hyperthyro idism resolved s/p DELATORRE ablation (1982). Postablati ve hypothyroidism 573702265 E89.0 s/p DELATORRE ablation (1982) with evolvement [...] a 30 day RX sent to [facility] in [place], [place] after review of labs. Addendum: TSH 1.04, FT4=1.55. Postmenopa usal osteoporosis 334181622 M81.0 She requested an opinion about treatment [...] of the lumbar spine or total hip). 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 Continue Synthroid 75 mcg daily pending labs. TSH and FT4 today.She will need a 30 day RX sent to [facility] in [place] after review of labs.Follo w up in one year with labs as noted below.12/31: TSH 0.812, FT4-1.54. Thyroid level is normal. RX sent to continue Synthroid 75 mcg daily. [id number] [place] [address] [place], [place] [address] 12/31/2018 07:41:21 12/31/2018 09:30:50 Postablative hypothyroidism 040531016 E89.0 hypothyroi dism s/p DELATORRE ablation (1982) for Grave's disease with no history of GED.Contin ue Synthroid 75 mcg daily pending labs. TSH and FT4 today.She will need a 90 day RX sent to [facility] in [place] after review of labs.Follo w up in one year with labs as noted below. ADDENDUM: 12/31/18 - TSH 2.07, FT4=1.47. [id number] [place] [address] [place], [place] [address] 01/11/2020 08:37:49 01/11/2020 09:44:16 Postablative hypothyroidism 635130668 E89.0 History of Grave's disease with no GED, evolved to hypothyroi dism s/p DELATORRE ablation (1982).Con tinue Synthroid 75 mcg daily pending labs.She will need a 90 day RX sent to [facility] in [place] after review of labs.Follo w up in one year with labs as noted below.ADDE NDUM: TSH 0.342, FT4=1.61 (normal). [id number] SHELBI ORTA APRN [facility] [place] [address] 08/15/2020 08:08:48 08/15/2020 10:27:01 Postablative hypothyroidism 316071810 E89.0 Hypothyroi dism s/p DELATORRE ablation for Grave's disease (1982) with no history of GED. Continue brand Synthroid 50 mcg daily pending labs. Will check TSH and FT4 today. She will need a 90 day RX sent to [facility] in [place] after review of labs. Recommend eye [...] patient by phone -letter and RX sent. [id number] SHELBI ORTA APRN [facility] [address] [place] [address] 01/11/2021 08:46:29 01/11/2021 16:23:04 Postablative hypothyroidism 788446740 E89.0 History of Grave's disease s/p DELATORRE [...] 4 months with labs as noted below. [id number] SHELBI ORTA APRN [facility] [address] [place] [address] 05/10/2021 08:17:12 05/10/2021 09:24:44 Postablative hypothyroidism 872176463 E89.0 History of Grave's disease s/p DELATORRE [...] Will continue same dose as noted above. [id number] [place] [address] [place] [address] 01/09/2022 08:09:37 01/09/2022 09:09:06 Postablative hypothyroidism 090210022 E89.0 [id number] MOODY PAULINO MD [facility] [address] [place] [address] 09/23/2022 08:15:33 09/23/2022 09:47:36 Postablative hypothyroidism 364997426 E89.0 Appears clinically euthyroid We had a [...] with the above mentioned plan of care. [id number] MOODY PAULINO MD [facility] [address] [place] [address] 1 11/08/2022 08:27:36 11/08/2022 10:30:54 Postablative hypothyroidism 922753866 E89.0 Clinically she still feels tired with [...] with the above mentioned plan of care. [id number] MOODY PAULINO MD [facility] [address] [place] [address] 1 11/14/2023 09:28:28 11/14/2023 11:43:19 Postablative hypothyroidism 105186446 E89.0 Clinically she denies any symptoms of [...] with the above mentioned plan of care. [id number] MOODY PAULNIO MD [facility] [address] [place], [place] [address] 11/25/2024 08:03:21 11/25/2024 08:48:31 Postablative hypothyroidism 168941301 E89.0 Clinically she denies any symptoms of [...] REPLACEMENT/A DVANTAGE - PPO) Katy Malone Christinavita [id number] Katy De Los Santos Notes Date Note [...] or diarrhea. CHECO MAN DO [address] [place], [address], [facility] 01/09/2022 11:25:43 09/23/2022 text/html ROS as noted [...] she is still grieving. MOODY PAULINO MD [address] [place] [address], [address], [facility] 09/23/2022 09:41:21 11/08/2022 text/html ROS as noted [...] and elevated total T4 MOODY PAULINO MD [address] [place] [address], [address], [facility] 11/08/2022 09:14:32 11/14/2023 text/html ROS as noted in the [facility] 78-year-old female with a past medical history [...] her anxiolytic medicine lorazepam MOODY PAULINO MD [address] [place] [address], [phone], [facility] 11/14/2023 11:34:39 11/25/2024 text/html ROS as noted [...] unintentional weight loss MOODY PAULINO MD [address] [place], [address], [facility] 11/25/2024 08:32:48 OBGyn Episode No OBEpisode recorded.
== END 2025-05-02 23:59 | disposition home or self-care (01) ==
LOC: RAD 09:07
PROVIDERS: PCP Family Medicine; Visit Provider Physician Assistant Surgical
DX: S52.502D Unspecified fracture of the lower end of left radius, subsequent encounter for closed fracture with routine healing (principal); X58.XXXD Exposure to other specified factors, subsequent encounter; M19.032 Primary osteoarthritis, left wrist
CPT/HCPCS: 73110

== ENCOUNTER 2025-05-30 09:00 | Outpatient (CLI) | payer MEDICARE, SELFPAY ==
--- NOTE | 2025-05-30 09:07 | XR_ITS ---
FINAL REPORT CLINICAL HISTORY: left wrist fx COMPARISON: 05/02/2025 FINDINGS: LEFT WRIST THREE VIEW FINDINGS: Three views show linear sclerosis of the radial metaphysis related to healing fracture. Or there has been further fracture healing with fracture line no longer evident. Generalized osteopenia is noted. No new abnormalities identified. The joint spaces appear normal. IMPRESSION: Progressive healing radial metaphysis fracture. Reviewed, Interpreted and Dictated by Avery Morales MD Transcribed by Melissa Escobar Authenticated and [facility]
--- OUTSIDE RECORDS SUMMARY | 2025-05-30 09:07 | XMS_ITS | Clinical Summary ---
Author Organization [facility]/Mariah Champlin Address [address] [place] [address] Phone Care Team Providers Care Rubberizing Mechanic Name Role Phone Karma Shi APRN Primary [...] mouth daily. Active L gasseri/B bifidum/B longum ([employer] [facility]) Take by mouth. Active [...] MR [employer] PPO MR Care Teams Rubberizing Mechanic Relationship Specialty Start Date End Date Karma Shi APRN [address] [facility] [address] [place] [address] PCP - General Nurse Practitioner 03/29/16
== END 2025-05-30 23:59 ==
LOC: RAD 09:03
PROVIDERS: PCP Family Medicine; Visit Provider Physician Assistant
DX: S52.502D Unspecified fracture of the lower end of left radius, subsequent encounter for closed fracture with routine healing (principal); X58.XXXD Exposure to other specified factors, subsequent encounter
CPT/HCPCS: 73110